=== PATIENT | male | born 1965 | race Caucasian/White ===

== ENCOUNTER 2017-10-24 15:57 | Inpatient (IN) | payer OTHER ==
[~2017-10-24] VITALS: Ht 177.8 cm; Wt 87.1 kg
[2017-10-24] MEDS ORDERED: SOD CHLORIDE 0.9% 1,000 ML IV STA (17:14)
[2017-10-24] MEDS ORDERED: morphine 4 MG/ML VIAL IV STA ×2 (17:14→17:16)
[2017-10-24] MEDS ORDERED: ONDANSETRON 4 MG INJ IV STA (17:16)
[2017-10-24 17:43] LABS: BASOPHIL # 0.1 10^3/ul (0.0-0.1); BASOPHILS % 0.4 % (0.0-2.0); EOSINOPHILS # 0.1 10^3/ul (0.0-0.5); EOSINOPHILS % 0.7 % (0.0-7.0); HEMOGLOBIN 15.2 g/dl (14.0-18.0); LYMPHOCYTES # 1.4 10^3/ul (0.8-2.9); LYMPHOCYTES % 10.4 % (15.0-51.0); MEAN CORPUSCULAR HGB CONC 33.8 g/dl (32.0-37.0); MEAN CORPUSCULAR VOLUME 91.6 fl (82.0-101.0); MEAN PLATELET VOLUME 10.7 fl (7.4-10.4); MONOCYTE # 0.7 10^3/ul (0.3-0.9); MONOCYTES % 5.2 % (0.0-11.0); NEUTROPHIL # 11.1 10^3/ul (1.6-7.5); NEUTROPHILS % 82.8 % (39.0-77.0); PLATELET COUNT 288 10^3/UL (140-415); RED BLOOD COUNT 4.91 10^6/ul (4.70-6.10); RED CELL DISTRIBUTION WIDTH 12.8 % (11.5-14.5); WHITE BLOOD COUNT 13.4 10^3/ul (4.8-10.8)
[2017-10-24 18:14] LABS: ALBUMIN 3.9 g/dl (3.3-4.9); ALBUMIN/GLOBULIN RATIO 1.3; BILIRUBIN,INDIRECT 0.5 mg/dl (0-1.1); BILIRUBIN,TOTAL 0.5 mg/dl (0.2-1.3); CALCIUM 10.4 mg/dl (8.4-10.2); CREATININE 1.26 mg/dl (0.61-1.24); TOTAL PROTEIN 6.9 g/dl (6.1-8.1)
[2017-10-24 18:29] LABS: INR 0.93; PROTIME 12.6 Sec (11.9-14.9)
[2017-10-24 18:30] LABS: PARTIAL THROMBOPLASTIN TIME 31.3 Sec (25.0-35.0)
[2017-10-24] MEDS ORDERED: LABE100T3 PO (18:36)
[2017-10-24] MEDS ORDERED: HYDR12.58 PO (18:37)
--- NOTE | 2017-10-24 18:40 | RADRPT ---
PROCEDURE: Scrotal ultrasound CLINICAL INDICATION: Scrotal pain. Swelling and hernia. TECHNIQUE: Scrotal ultrasound was performed with sagittal and transverse views. Rios scale and co anuj imaging was performed. Images were reviewed on high resolution PACS monitors. COMPARISON: None available FINDINGS: Right Testis: Size: 3.8 x 2.3 x 3.4 cm Echotexture: Normal. Color flow: Normal. Lesions: None. Left Testis: Size: 4.4 x 1.3 x 3.5 cm Echotexture: Normal. Color flow: Normal. Lesions: None. Right Epididymis:Not visualized. Left Epididymis: Size: Normal. Echotexture: Normal. Color flow: Normal. Lesions: None. Additional Findings: Hydrocele: None. Soft Tissues: Massive left inguinal hernia containing bowel loops and mesenteric fat. Varicocele: Large left sided varicocele IMPRESSION: 1. Massive left-sided scrotal hernia. Correlation with CT scan is advised. Surgical consultation is required. RPTAT: PP .Barry Coto MD, MD Date Time Electronically viewed and signed by .Barry Coto MD, on 10/24/2017 18:40 .B/
--- NOTE | 2017-10-24 18:46 | RADRPT ---
PROCEDURE: CT Abdomen and Pelvis without contrast. CLINICAL INDICATION: Severe abdominal pain. TECHNIQUE: A CT scan of the abdomen and pelvis was performed without intravenous contrast. Han l and sagittal reformatted images were generated. DICOM images are available. Images were reviewed o n a high-resolution PACS workstation. CTDIvol: 11.18 mGy. DLP: 738.66 mGy-cm. One or more of the following dose reduction techniques were used: - Automated exposure control. - Adjustment of the mA and/or kV according to patient size. - Use of iterative reconstruction technique. COMPARISON: None. FINDINGS: A minimal atelectatic changes in the lower lobes. Evaluation of the abdominal and pelvic viscera is limited by the lack of oral and intravenous contra st. The liver is unremarkable. The gallbladder is normal in appearance. The common bile duct is not dila jak. The spleen is not enlarged. No pancreatic lesion is identified and there is no pancreatic ducta l dilatation. The adrenal glands are unremarkable. The kidneys are normal in size. There is no perinephric fat stranding. There is mild to moderate lef t hydronephrosis due to kinking of the mid to distal left ureter by an extremely large left inguinal hernia. No urinary stone is identified. There is a 1.8 cm left renal cyst. There is an extremely large left inguinal hernia which is partially imaged. The hernia contains near ly the entire sigmoid colon and cecum, which are not dilated. There is also a distal small bowel loo p within the hernia which is dilated up to 4.9 cm in diameter. The small bowel proximal to the herni a is also dilated up to approximately 4.4 cm in diameter, consistent with a small bowel obstruction. The appendix is not identified. The urinary bladder is unremarkable. The pelvic organs are within normal limits. No lymphadenopathy is identified. There is a small volume of ascites. No pneumoperitoneum is seen. T here are mild to moderate arterial calcifications. No suspicious osseous lesion is idenitified. IMPRESSION: 1. Extremely large left inguinal hernia, partially imaged. The hernia contains nearly the entire si gmoid colon and cecum, which are not dilated. There is also a dilated distal small bowel loop within the hernia sac, and dilatation of the more proximal small bowel, consistent with a small bowel obst ruction. 2. Mild to moderate left hydroureteronephrosis secondary to kinking of the mid to distal left urete r by the hernia. 3. Small volume of ascites. 4. Mild to moderate atherosclerotic arterial calcifications. RPTAT: HTAR .Misbah Art MD, Date Time Electronically viewed and signed by .Misbah Art MD, on 10/24/2017 18:45 .R/
[2017-10-24] MEDS ORDERED: ONDANSETRON 4 MG INJ IV PRN ×2 (19:30→21:30)
[2017-10-24] MEDS ORDERED: ACETAMINOPHEN 325 MG TAB PO PRN (19:30)
--- NOTE | 2017-10-24 19:56 | ERD ---
ER Documentation Chief Complaint Chief Complaint l. inguinal hernia pain HPI 52-year-old male with severe sharp lower abdominal inguinal hernia pain for the last 24 hours. States that he has had a large, irreducible, inguinal hernia and is humongous scrotum for 20 years. Has spoken to surgeons about possible repair before but does not know what happened on follow-up. Denies fever and chills. Does have nausea but has not vomited. Denies specific testicular pain. ROS All systems reviewed and are negative except as per history of present illness. Medications Home Meds Reported Medications Hydrochlorothiazide* (Hydrochlorothiazide*) Unknown Strength Tablet, 1 TAB PO DAILY, #30 TAB 10/24/17 Labetalol Hcl* (Labetalol Hcl*) Unknown Strength Tablet, 1 TAB PO BID, TAB 10/24/17 Allergies Allergies: Coded Allergies: No Known Allergy (Unverified , 10/24/17) PMhx/Soc History of Surgery: Yes (Right knee, low back,) Anesthesia Reaction: No Hx Neurological Disorder: No Hx Respiratory Disorders: No Hx Cardiac Disorders: Yes (HTN) Hx Psychiatric Problems: No Hx Miscellaneous Medical Probl: No Hx Alcohol Use: No Hx Substance Use: No Hx Tobacco Use: Yes Smoking Status: Current every day smoker Physical Exam Vitals Vital Signs Date Time Temp Pulse Resp B/P Pulse Ox O2 Delivery O2 Flow Rate FiO2 10/24/17 18:20 97.9 73 20 140/102 98 Room Air 10/24/17 15:59 97.9 87 20 175/108 98 Physical Exam Const: [] Moderate distress Head: Atraumatic Eyes: Normal Conjunctiva ENT: Normal External Ears, Nose and Mouth. Neck: Full range of motion..~ No meningismus. Resp: Clear to auscultation bilaterally Cardio: Regular rate and rhythm, no murmurs Abd: Soft, mild lower abdominal tenderness, mild tenderness to palpation of left scrotum. No guarding. Scrotum is enormous but does not have any erythema or calor. No tenderness palpation of penis. Normal bowel sounds Skin: No petechiae or rashes Back: No midline or flank tenderness Ext: No cyanosis, or edema Neur: Awake and alert oriented 3, no focal deficits Psych: Normal Mood and Affect Result Diagram: 10/24/17 1725 10/24/17 1725 Results 24 hrs Laboratory Tests Test 10/24/17 17:25 White Blood Count 13.410^3/ul Red Blood Count 4.9110^6/ul Hemoglobin 15.2g/dl Hematocrit 45.0% Mean Corpuscular Volume 91.6fl Mean Corpuscular Hemoglobin 31.0pg Mean Corpuscular Hemoglobin Concent 33.8g/dl Red Cell Distribution Width 12.8% Platelet Count 88145^3/UL Mean Platelet Volume 10.7fl Neutrophils % 82.8% Lymphocytes % 10.4% Monocytes % 5.2% Eosinophils % 0.7% Basophils % 0.4% Nucleated Red Blood Cells % 0.0/100WBC Neutrophils # 11.110^3/ul Lymphocytes # 1.410^3/ul Monocytes # 0.710^3/ul Eosinophils # 0.110^3/ul Basophils # 0.110^3/ul Nucleated Red Blood Cells # 0.010^3/ul Prothrombin Time 12.6Sec Prothrombin Time Ratio 1.0 INR International Normalized Ratio 0.93 Activated Partial Thromboplast Time 31.3Sec Sodium Level 139mmol/L Potassium Level 4.0mmol/L Chloride Level 99mmol/L Carbon Dioxide Level 31mmol/L Anion Gap 13 Blood Urea Nitrogen 16mg/dl Creatinine 1.26mg/dl Glucose Level 166mg/dl Lactic Acid Level 1.5mmol/L Calcium Level 10.4mg/dl Total Bilirubin 0.5mg/dl Direct Bilirubin 0.00mg/dl Indirect Bilirubin 0.5mg/dl Aspartate Amino Transf (AST/SGOT) 25IU/L Alanine Aminotransferase (ALT/SGPT) 39IU/L Alkaline Phosphatase 110IU/L Total Protein 6.9g/dl Albumin 3.9g/dl Globulin 3.00g/dl Albumin/Globulin Ratio 1.30 Lipase 50U/L Current Medications Medications (Trade) Dose Ordered Sig/Terry Route PRN Reason Start Time Stop Time Status Last Admin Dose Admin Sodium Chloride (NS) 1,000 ml @ 1,000 mls/hr Q1H STAT IV 10/24/17 17:14 10/24/17 18:13 DC 10/24/17 17:14 Morphine Sulfate (morphine) 4 mg ONCE STAT IV 10/24/17 17:14 10/24/17 17:16 DC 10/24/17 18:20 Ondansetron HCl (Zofran Inj) 4 mg ONCE STAT IV 10/24/17 17:16 10/24/17 17:17 DC 10/24/17 18:20 Morphine Sulfate (morphine) 4 mg ONCE STAT IV 10/24/17 17:16 10/24/17 17:17 DC 10/24/17 18:20 Ondansetron HCl (Zofran Inj) 4 mg BRIDGE ORDER PRN IV NAUSEA AND/OR VOMITING 10/24/17 19:30 10/25/17 19:29 Acetaminophen (Tylenol Tab) 650 mg ER BRIDGE PRN PO MILD PAIN/FEVER 10/24/17 19:30 10/25/17 19:29 Procedures/MDM Small bowel obstruction of chronic inguinal hernia into enlarged scrotum. Patient does have elevated white blood cell count. He was hydrated with 2 L of normal saline feeding for the pain which almost completely resolved his pain. Is also given Zofran which resolved his nausea. Spoke with Dr. Guo who will see patient on consult. Is being admitted to on day. CT abdomen pelvis with contrast: Small bowel obstruction proximal to markedly enlarged scrotum containing the entire sigmoid colon, no free air, no bony abnormalities. Scrotal ultrasound: Markedly enlarged scrotum with inability to visualize testicles. Departure Diagnosis: Primary Impression: Small bowel obstruction Additional Impressions: Scrotal hernia Renal insufficiency Condition: Serious DALE PRESTON DO Oct 24, 2017 19:56
[2017-10-24 20:18] VITALS: TEMP 97.9
[2017-10-24 21:25] VITALS: BP 150/97; RESP 20; Ht 177.8 cm; Wt 87.1 kg
[2017-10-24] MEDS ORDERED: DEXTROSE 5%-0.45% NACL 1,000 ML IV SCH (21:30)
[2017-10-24] MEDS ORDERED: hydrALAzine 20 MG INJ IV PRN (21:30)
[2017-10-24] MEDS: morphine 4 MG/ML VIAL IV PRN (22:11)
--- NOTE | 2017-10-24 23:22 | CONS ---
Date/Time of Note Date/Time of Note DATE: 10/24/17 TIME: 23:22 Assessment/Plan Assessment/Plan Chief Complaint/Hosp Course 1. Very large chronic (20 years) left inguinal hernia that has become more significantly painful. -Elevate -Patient will need surgical intervention however high risk for perioperative morbidity and mortality and developing seroma fluid collection. 2. SBO, possible partial secondary to above -npo -NG tube -Eventual surgery if not improving 3. Leukocytosis may be secondary to above versus other -Panculture 4. Anemia -Monitor 5. Smoker -Highly encouraged cessation 6. Renal insufficiency -Judicious fluid management -Avoid nephrotoxic agents 7. Hypertension -Diet and medication optimization encouraged Thank you very much for consulting me this patient's care, Problems: Consultation Date/Type/Reason Admit Date/Time Oct 24, 2017 at 19:31 Date of Consultation: Oct 24, 2017 Type of Consultation: General surgical Reason for Consultation Left groin pain Huge left scrotal hernia Referring Provider: DALE PRESTON DO Hx of Present Illness Sunday Torrez is a 52yo male with severe sharp lower abdominal inguinal hernia pain for the last 24 hours. States that he has had a large, irreducible, inguinal hernia and is humongous scrotum for 20 years. Has spoken to surgeons about possible repair in the past. Usually has a bowel movement every other day and he gone yesterday. He is passing flatus. Denies fever and chills. Does have nausea but has not vomited. Denies visual neurologic changes. CT scan is reported. He has mild leukocytosis. Surgical consult is obtained further evaluation and treatment. 12 point review of systems negative unless addressed in HPI Past Medical History Right knee Low back pain HTN Smoker Anemia Leukocytosis Renal insufficiency Family History Significant Family History: no pertinent family hx Social History Alcohol Use: occasionally Smoking Status: Current every day smoker Drug Use: marijuana Exam/Review of Systems Vital Signs Vitals Vital Signs Date Time Temp Pulse Resp B/P Pulse Ox O2 Delivery O2 Flow Rate FiO2 10/24/17 21:25 98.2 86 20 150/97 95 10/24/17 20:18 Room Air Exam Constitutional: alert, oriented, No distress Psych: nl mood/affect, No anxiety Head: atraumatic, normocephalic Eyes: PERRL, nl conjunctiva, No icteric ENMT: mucosa pink and moist, nl external ears & nose, nl lips & teeth Neck: jvd, non-tender, supple Respiratory: normal air movement, No congested cough, No labored breathing Cardiovascular: edema, No regular rate and rhythm Gastrointestinal: distended, other (Blanching erythema very minimal), soft, tender, No rebound or guarding Genitourinary - Male: nl penis Musculoskeletal: No joint tenderness Extremities: normal pulses, No calf tenderness Neurological: nl speech, nl strength, No COG[employer]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, No confused, No nl mental status Skin: nl turgor, No diaphoresis, No rash or lesions Lymph: nl lymph nodes Results Result Diagram: 10/24/17 1725 10/24/17 1725 Results 24 hrs Laboratory Tests Test 10/24/17 17:25 White Blood Count 13.4 H Red Blood Count 4.91 Hemoglobin 15.2 Hematocrit 45.0 Mean Corpuscular Volume 91.6 Mean Corpuscular Hemoglobin 31.0 Mean Corpuscular Hemoglobin Concent 33.8 Red Cell Distribution Width 12.8 Platelet Count 288 Mean Platelet Volume 10.7 H Neutrophils % 82.8 H Lymphocytes % 10.4 L Monocytes % 5.2 Eosinophils % 0.7 Basophils % 0.4 Nucleated Red Blood Cells % 0.0 Neutrophils # 11.1 H Lymphocytes # 1.4 Monocytes # 0.7 Eosinophils # 0.1 Basophils # 0.1 Nucleated Red Blood Cells # 0.0 Prothrombin Time 12.6 Prothrombin Time Ratio 1.0 INR International Normalized Ratio 0.93 Activated Partial Thromboplast Time 31.3 Sodium Level 139 Potassium Level 4.0 Chloride Level 99 Carbon Dioxide Level 31 Anion Gap 13 Blood Urea Nitrogen 16 Creatinine 1.26 H Glucose Level 166 Lactic Acid Level 1.5 Calcium Level 10.4 H Total Bilirubin 0.5 Direct Bilirubin 0.00 Indirect Bilirubin 0.5 Aspartate Amino Transf (AST/SGOT) 25 Alanine Aminotransferase (ALT/SGPT) 39 Alkaline Phosphatase 110 Total Protein 6.9 Albumin 3.9 Globulin 3.00 Albumin/Globulin Ratio 1.30 Lipase 50 Medications Medications Current Medications Dextrose/Sodium Chloride (D5-1/2ns) 1,000 ml @ 100 mls/hr Q10H IV Last administered on 10/24/17t 22:11; Admin Dose 100 MLS/HR; Start 10/24/17 at 21:30 Morphine Sulfate (morphine) 3 mg Q4H PRN IV pain Last administered on t 22:11; Admin Dose 3 MG; Start 10/24/17 at 21:30 Ondansetron HCl (Zofran Inj) 4 mg Q6H PRN IV NAUSEA AND/OR VOMITING; Start 10/24/17 at 21:30 Hydralazine HCl (Apresoline) 10 mg Q4H PRN IV SBP above 160; Start 10/24/17 at 21:30 CONCETTA THOMAS MD Oct 24, 2017 23:22
[2017-10-25] MEDS: SOD CHLORIDE 0.9% 1,000 ML IV SCH ×3 (01:25→12:31)
[2017-10-25 02:27] VITALS: BP 157/104; RESP 20
[2017-10-25 03:13] VITALS: BP 146/88
[2017-10-25] MEDS: morphine 4 MG/ML VIAL IV PRN (06:35)
[2017-10-25 08:26] VITALS: BP 131/83; RESP 18
--- NOTE | 2017-10-25 09:24 | PN ---
Date/Time of Note Date/Time of Note DATE: 10/25/17 TIME: 09:24 Assessment/Plan VTE Prophylaxis VTE Prophylaxis Intervention: SCD's Assessment/Plan Chief Complaint/Hosp Course 52-year-old male with chronic scrotal/inguinal hernia with hugely swollen scrotum for around 20 years, now presenting to the emergency room with sudden onset of excruciating scrotal pain. 1.Massive left-sided scrotal hernia/inguinal hernia occupying entire sigmoid colon and cecum causing partial small bowel obstruction and left hydroureteronephrosis. Patient now symptomatic. Status: Acute on chronic. -Surgery following. I have also consulted urologist , and per recommendation, this hernia should be repaired by surgery team. -Keep patient n.p.o. After discussion with surgery team, we are going to place an order for small bowel follow-through and NG tube insertion. -Continue pain control. -We will defer to urology /surgery for further recommendation on surgical approach if indicated. 2. CATRINA, likely post renal with left hydroureteronephrosis versus CKD. -We will treat this with IV fluids. We will also obtain a renal ultrasound. We will also obtain some urine studies. -Monitor renal function closely and will consider nephrology if indicated. Follow-up with the urology recommendations. 3. Essential hypertension. Patient also noncompliant with antihypertensives as outpatient. -We will start patient on low-dose metoprolol and will monitor. 4. Leukocytosis, likely reactive versus possible infectious source. -Obtain a urine analysis and culture. 5. Possible homelessness. Patient reported that he lives in his friend's garage. -wine cellar worker consult. 6. Substance abuse/nicotine abuse. Cessation advised. Prophylaxis: SCDs/Pepcid. Plan: Follow-up with surgery and urology recommendations. Patient was seen in collaboration with . Problems: Subjective 24 Hr Interval Summary Free Text/Dictation Patient lying in bed. He is complaining of severe scrotal pain and is relieved with morphine. Denies dysuria, hematuria, urinary frequency or urgency. Exam/Review of Systems Vital Signs Vitals Vital Signs Date Time Temp Pulse Resp B/P Pulse Ox O2 Delivery O2 Flow Rate FiO2 10/25/17 08:26 98.2 72 18 131/83 97 10/24/17 20:18 Room Air Intake and Output 10/24/17 10/24/1710/25/17 15:00 23:00 07:00 Intake Total 680 ml Balance 680 ml Exam General: Well developed,adequately built, somewhat disheveled male not in any acute distress . HEENT: Normocephalic, Atraumatic, No laceration or hematoma; Eyes: PEERL, Conjunctiva clear, Anicteric sclera Neck: Supple without any lymphadenopathy, nontender, no JVD, no carotid bruits, trachea midline, no thyromegaly Cardiac: S1, S2 auscultated, regular rhythm and rate, no mumurs or gallop Pulmonary: Normal respiratory effort. Chest clear to auscultation bilaterally, no adventitious breath sounds GI: Abdomen normal to inspection. Soft, non tender, non- distended, no masses, no rebound tenderness or guarding. Bowel sounds active on all four quadrants Genitourinary: Humongous/Hugely swollen scrotum with pain. Extremities: No cyanosis, clubbing, or edema. Pulses [2+] bilaterally. Full ROM on all four extremities. No focal weakness appreciated. Neurologic: Alert to person, place, time, and situation. Affect appropriate, intact sensation. Skin: Clean,dry, and intact. No ecchymosis, no rashes, or lesions Results Result Diagram: 10/24/17 1725 10/24/17 1725 Results 24 hrs Laboratory Tests Test 10/24/17 17:25 White Blood Count 13.4 H Red Blood Count 4.91 Hemoglobin 15.2 Hematocrit 45.0 Mean Corpuscular Volume 91.6 Mean Corpuscular Hemoglobin 31.0 Mean Corpuscular Hemoglobin Concent 33.8 Red Cell Distribution Width 12.8 Platelet Count 288 Mean Platelet Volume 10.7 H Neutrophils % 82.8 H Lymphocytes % 10.4 L Monocytes % 5.2 Eosinophils % 0.7 Basophils % 0.4 Nucleated Red Blood Cells % 0.0 Neutrophils # 11.1 H Lymphocytes # 1.4 Monocytes # 0.7 Eosinophils # 0.1 Basophils # 0.1 Nucleated Red Blood Cells # 0.0 Prothrombin Time 12.6 Prothrombin Time Ratio 1.0 INR International Normalized Ratio 0.93 Activated Partial Thromboplast Time 31.3 Sodium Level 139 Potassium Level 4.0 Chloride Level 99 Carbon Dioxide Level 31 Anion Gap 13 Blood Urea Nitrogen 16 Creatinine 1.26 H Glucose Level 166 Lactic Acid Level 1.5 Calcium Level 10.4 H Total Bilirubin 0.5 Direct Bilirubin 0.00 Indirect Bilirubin 0.5 Aspartate Amino Transf (AST/SGOT) 25 Alanine Aminotransferase (ALT/SGPT) 39 Alkaline Phosphatase 110 Total Protein 6.9 Albumin 3.9 Globulin 3.00 Albumin/Globulin Ratio 1.30 Lipase 50 Medications Medications Current Medications Dextrose/Sodium Chloride (D5-1/2ns) 1,000 ml @ 100 mls/hr Q10H IV Last administered on 10/24/17 22:11; Admin Dose 100 MLS/HR; Start 10/24/17 at 21:30 Morphine Sulfate (morphine) 3 mg Q4H PRN IV pain Last administered on 06:35; Admin Dose 3 MG; Start 10/24/17 at 21:30 Ondansetron HCl (Zofran Inj) 4 mg Q6H PRN IV NAUSEA AND/OR VOMITING Last administered on 10/24/17 23:38; Admin Dose 4 MG; Start 10/24/17 at 21:30 Hydralazine HCl (Apresoline) 10 mg Q4H PRN IV SBP above 160 Last administered on 10/25/17 01:42; Admin Dose 10 MG; Start 10/24/17 at 21:30 RICHARD HICKMAN NP Oct 25, 2017 09:24
[2017-10-25] MEDS: METOPROLOL 25 MG TAB PO SCH (09:30)
[2017-10-25] MEDS ORDERED: LEVOFLOXACIN 500MG/D5W (PMX) 100 ML IVPB SCH (11:00)
--- NOTE | 2017-10-25 11:16 | RADRPT ---
PROCEDURE: Retroperitoneal US. CLINICAL INDICATION: Renal insufficiency TECHNIQUE: Multiple sonographic images of the kidneys and retroperitoneum were obtained. The imag es were reviewed on a PACS workstation. COMPARISON: 10/24/17 FINDINGS: The kidneys are normal in size, contour, cortical thickness and cortical echogenicity. The right kidney measures 9.9 cm. The left kidney measures 10.9 cm. No kidney stones are visualized. There is mild to moderate hydronephrosis. The urinary bladder is normal. There is a small amount of ascites. RPTAT: AA IMPRESSION: Mild to moderate left-sided hydronephrosis, not significantly changed. .Sung Kumar MD, MD Date Time Electronically viewed and signed by .Sung Kumar MD, on 10/25/2017 11:16 .S/
[2017-10-25 11:21] LABS: CHOL/HDL RATIO 3.6 RATIO
[2017-10-25 12:48] LABS: THYROID STIMULATING HORMONE 0.498 MIU/L (0.465-4.680)
--- NOTE | 2017-10-25 13:08 | PN ---
Date/Time of Note Date/Time of Note DATE: 10/25/17 TIME: 12:50 Assessment/Plan Assessment/Plan Chief Complaint/Hosp Course 1. Very large chronic (20 years) left inguinal hernia that has become more significantly painful. -Elevate -sbft -Patient will need surgical intervention however high risk for perioperative morbidity and mortality and developing seroma fluid collection. 2. SBO, possible partial secondary to above -npo -NG tube-patient refusing -Eventual surgery if not improving 3. Leukocytosis may be secondary to above versus other: afebrile -Panculture 4. Anemia -Monitor 5. Smoker -Highly encouraged cessation 6. Renal insufficiency -Judicious fluid management -Avoid nephrotoxic agents 7. Hypertension -Diet and medication optimization encouraged Thank you. Patient seen and examined in collaboration with Dr. Trell Guo. Problems: Subjective 24 Hr Interval Summary Feels ok. Continues to have perineal discomfort but no acute pain. Continues to have urinary function, but no bowel function. No fevers, chills, sob, congested cough, cp, palpitations, doll, dizziness, n/v/d/dysuria. Exam/Review of Systems Vital Signs Vitals Vital Signs Date Time Temp Pulse Resp B/P Pulse Ox O2 Delivery O2 Flow Rate FiO2 10/25/17 08:26 98.2 72 18 131/83 97 10/24/17 20:18 Room Air Intake and Output 10/24/17 10/24/17 10/25/17 15:00 23:00 07:00 Intake Total 680 ml Balance 680 ml Exam Free Text/Dictation Constitutional: alert, oriented, No distress Psych: nl mood/affect, No anxiety Head: atraumatic, normocephalic Eyes: PERRL, nl conjunctiva, No icteric ENMT: mucosa pink and moist, nl external ears & nose, nl lips & teeth Neck: jvd, non-tender, supple Respiratory: normal air movement, No congested cough, No labored breathing Cardiovascular: edema, No regular rate and rhythm Gastrointestinal: distended, other (Blanching erythema very minimal), soft, tender, No rebound or guarding Genitourinary - Male: large left inguinal hernia, no discoloration, min tender Musculoskeletal: No joint tenderness Extremities: normal pulses, No calf tenderness Neurological: nl speech, nl strength, No SHOE TURNER II-XII intact, No confused, No nl mental status Skin: nl turgor, No diaphoresis, No rash or lesions Lymph: nl lymph nodes Results Result Diagram: 10/24/17 1725 10/24/17 1725 AMY GAMBOA NP Oct 25, 2017 13:00
[2017-10-25 14:20] VITALS: BP 154/101; RESP 18
--- NOTE | 2017-10-25 15:00 | CONS ---
Date/Time of Note Date/Time of Note DATE: 10/25/17 TIME: 14:56 Assessment/Plan Assessment/Plan Additional Assessment/Plan 52-year-old male with 1.Massive left-sided scrotal hernia/inguinal hernia 2 Partial small bowel obstruction and left hydroureteronephrosis. 3.CATRINA vs CKD 2nd to above. 4.Essential hypertension. 5.Leukocytosis 6.Hypercalcemia Planned for OR today, Hernia Repair. Agree with IVFs cont current rate Repeat chemstry in am Cont current Rx and plan Will cont to follow along with you. Will cont to monitor BP, Consider change to labetalol at this time If necessary can start lasix instead of HCTZ due to hypercalcemia Thank you fo the opportunity to participate in the care of Mr Poole. Consultation Date/Type/Reason Admit Date/Time Oct 24, 2017 at 19:31 Date of Consultation: Oct 25, 2017 Type of Consultation: Renal Reason for Consultation Catrina, CKD Referring Provider: RICHARD HICKMAN NP Hx of Present Illness 52 yo Male with hx of Chronic HTN, large scrotal swelling chronically for many years >20 years, presenting to [facility] with complaints of lower abdominal and scrotal pain. Found to have elevated Cr on bloodwork. Nephrology consulted for CATRINA vs CKD. Pt is able to make urine. No dysuria or hematuria. Past Medical History Medical History: hypertension Family History Significant Family History: no pertinent family hx Social History Alcohol Use: none Smoking Status: Current every day smoker Drug Use: marijuana Exam/Review of Systems Vital Signs Vitals Vital Signs Date Time Temp Pulse Resp B/P Pulse Ox O2 Delivery O2 Flow Rate FiO2 10/25/17 14:20 97.8 82 18 154/101 96 10/24/17 20:18 Room Air Intake and Output 10/24/17 10/24/17 10/25/17 15:00 23:00 07:00 Intake Total 680 ml Balance 680 ml Exam disheveled in appearance Constitutional: alert, oriented, No distress Head: atraumatic, normocephalic Eyes: EOMI ENMT: mucosa pink and moist Neck: No jvd Respiratory: clear to auscultation, No crackles/rales, No diminished breath sounds, No labored breathing Cardiovascular: edema (trace), regular rate and rhythm Gastrointestinal: rebound or guarding, soft, tender, No ascites, No distended Genitourinary - Male: other (Large scortal herniation), No nl scrotum Musculoskeletal: nl extremities to inspection Extremities: edema (trace), normal pulses Neurological: SLAB OFF MILL TENDER II-XII intact, nl mental status, nl speech, nl strength, No confused, No lethargic Skin: No diaphoresis Results Result Diagram: 10/24/17 1725 10/24/17 1725 Results 24 hrs Laboratory Tests Test 10/24/17 17:25 10/25/17 10:32 White Blood Count 13.4 H Red Blood Count 4.91 Hemoglobin 15.2 Hematocrit 45.0 Mean Corpuscular Volume 91.6 Mean Corpuscular Hemoglobin 31.0 Mean Corpuscular Hemoglobin Concent 33.8 Red Cell Distribution Width 12.8 Platelet Count 288 Mean Platelet Volume 10.7 H Neutrophils % 82.8 H Lymphocytes % 10.4 L Monocytes % 5.2 Eosinophils % 0.7 Basophils % 0.4 Nucleated Red Blood Cells % 0.0 Neutrophils # 11.1 H Lymphocytes # 1.4 Monocytes # 0.7 Eosinophils # 0.1 Basophils # 0.1 Nucleated Red Blood Cells # 0.0 Prothrombin Time 12.6 Prothrombin Time Ratio 1.0 INR International Normalized Ratio 0.93 Activated Partial Thromboplast Time 31.3 Sodium Level 139 Potassium Level 4.0 Chloride Level 99 Carbon Dioxide Level 31 Anion Gap 13 Blood Urea Nitrogen 16 Creatinine 1.26 H Glucose Level 166 Lactic Acid Level 1.5 Calcium Level 10.4 H Total Bilirubin 0.5 Direct Bilirubin 0.00 Indirect Bilirubin 0.5 Aspartate Amino Transf (AST/SGOT) 25 Alanine Aminotransferase (ALT/SGPT) 39 Alkaline Phosphatase 110 Total Protein 6.9 Albumin 3.9 Globulin 3.00 Albumin/Globulin Ratio 1.30 Lipase 50 Hemoglobin A1c 5.6 Triglycerides Level 106 Cholesterol Level 122 LDL Cholesterol, Calculated 68 HDL Cholesterol 33 Cholesterol/HDL Ratio 3.6 Thyroid Stimulating Hormone (TSH) 0.498 Imaging Free Text/Dictation IMPRESSION: 1. Extremely large left inguinal hernia, partially imaged. The hernia contains nearly the entire sigmoid colon and cecum, which are not dilated. There is also a dilated distal small bowel loop within the hernia sac, and dilatation of the more proximal small bowel, consistent with a small bowel obstruction. 2. Mild to moderate left hydroureteronephrosis secondary to kinking of the mid to distal left ureter by the hernia. 3. Small volume of ascites. 4. Mild to moderate atherosclerotic arterial calcifications. Medications Medications Current Medications Morphine Sulfate (morphine) 3 mg Q4H PRN IV pain Last administered on 06:35; Admin Dose 3 MG; Start 10/24/17 at 21:30 Ondansetron HCl (Zofran Inj) 4 mg Q6H PRN IV NAUSEA AND/OR VOMITING Last administered on 10/24/17 23:38; Admin Dose 4 MG; Start 10/24/17 at 21:30 Hydralazine HCl 10 mg 10 mg Q4H PRN IV SBP above 160 Last administered on 01:42; Admin Dose 10 MG; Start 10/24/17 at 21:30 Sodium Chloride (NS) 1,000 ml @ 75 mls/hr [id number] IV Last administered on 10/25 12:31; Admin Dose 75 MLS/HR; Start 10/25/17 at 09:30 Metoprolol Tartrate 25 mg 25 mg DAILY PO ; Start 10/25/17 at 09:30 Levofloxacin/ Dextrose (Levaquin 500mg/ D5W 100 ml (Pmx)) 100 ml @ 100 mls/hr Q24H IVPB Last administered on 10/25/17 12:31; Admin Dose 100 MLS/HR; Start 10/25/17 at 11:00 Procedures Procedures PROCEDURE: Retroperitoneal US. CLINICAL INDICATION: Renal insufficiency TECHNIQUE: Multiple sonographic images of the kidneys and retroperitoneum were obtained. The images were reviewed on a PACS workstation. COMPARISON: 10/24/17 FINDINGS: The kidneys are normal in size, contour, cortical thickness and cortical echogenicity. The right kidney measures 9.9 cm. The left kidney measures 10.9 cm. No kidney stones are visualized. There is mild to moderate hydronephrosis. The urinary bladder is normal. There is a small amount of ascites. RPTAT: AA IMPRESSION: Mild to moderate left-sided hydronephrosis, not significantly changed. .Sung Kumar MD, MD Date Time Electronically viewed and signed by .Sung Kumar MDMD on 10/25/2017 11: 16 IMPRESSION: 1. Massive left-sided scrotal hernia. Correlation with CT scan is advised. Surgical consultation is required. DAKOTA HUTCHINSON MD Oct 25, 2017 15:00
--- NOTE | 2017-10-25 15:28 | RADRPT ---
AMENDMENT: 10/25/2017 3:29:13 PM Sung Kumar M.d There are small bilateral scattered calcified granulomas. PROCEDURE: XR Chest. CLINICAL INDICATION: Preoperative, hernia TECHNIQUE: Single frontal view of the chest was obtained COMPARISON: None FINDINGS: The heart and mediastinum are within normal limits. The lungs are clear. There is no pleural effusion or pneumothorax. RPTAT: AA IMPRESSION: No acute disease. .Sung Kumar MD, MD Date Time Electronically viewed and signed by .Sung Kumar MD, on 10/25/2017 15:29 .S/
--- NOTE | 2017-10-25 15:57 | RADRPT ---
Echocardiogram Report Patient Name: ANDREW ZAYAS Gender: Male Date: 1965 Study Date: 25-Oct-2017 Associate Genetics Professor: Clarke Chris [facility] Location: 621-A Ref. Physician: RICHARD HICKMAN Quality: Adequate Procedures: Transthoracic echocardiogram with complete 2D, M-Mode, and doppler examination. Indications: Pre-op. 2D/M Mode Doppler Measurement Value Normal Ranges Measurement Value Normal Ranges LVIDd 2D 4.7 3.5 - 5.6 cm AV Peak Alexis 1.1 m/sec LVIDs 2D 3.0 2.1 - 4.1 cm AV Peak PG 5.0 mmHg FS 2D 36.3 % LVOT Peak Alexis 1.0 m/sec LVPWd 2D 1.3 0.6 - 1.1 cm LVOT Peak PG 4.0 mmHg IVSd 2D 1.3 0.6 - 1.1 cm MV E Peak Alexis 0.6 m/sec IVS/LVPW 2D 1.0 MV A Peak Alexis 0.9 m/sec AoR Diam 2D 3.4 2.0 - 3.7 cm MV E/A 0.7 LA/Ao 2D 1 0 - 1 MV Decel Time 180 msec EDV 2D 101.0 cm3 MV E/A 0.7 ESV 2D 26.2 cm3 TR Peak Alexis 2.6 m/sec LA Dimen 2D 3.4 2.3 - 4.0 cm TR Peak PG 26.0 mmHg RVSP 29.0 mmHg Findings Left Ventricle: Normal left ventricular systolic function. Normal left ventricular cavity size. Mild concentric left ventricular hypertrophy. Ejection fraction is visually estimated at 5560 %. Tissue Doppler/Mitral Doppler indices are consistent with impaired relaxation (Stage I diastolic dysfunction). Right Ventricle: Normal right ventricular size. Normal right ventricular systolic function. Left Atrium: The left atrium is normal in size. Right Atrium: The right atrium is normal in size. Mitral Valve: Mitral valve leaflets appear mildly thickened. Mild mitral annular calcification. Trace mitral regurgitation. Aortic Valve: Normal appearance of the aortic valve. No significant aortic stenosis or insufficiency. Tricuspid Valve: Normal appearance of the tricuspid valve. Estimated peak PA systolic pressure 29 mmHg. There is mild tricuspid regurgitation. Pulmonic Valve: Pulmonic valve not well visualized. There is trace pulmonic regurgitation. Pericardium: Normal pericardium with no significant pericardial effusion. Aorta: Normal aortic root. IVC: Normal size and normal respiratory collapse consistent with normal right atrial pressure. Conclusions 1.The left ventricle is normal in size and systolic function. 2.Estimated left ventricular ejection fraction of 55-60%. 3.Grade 1 diastolic dysfunction. Electronically Signed By: Irineo Pierre 25-Oct-2017 15:56:26 -0800 Patient Name: ANDREW ZAYAS Study Date: 25-Oct-2017 [id number]
[2017-10-25 16:38] LABS: ADD UMIC NO; UR ASCORBIC ACID NEGATIVE (NEGATIVE); UR BILIRUBIN (Dip) NEGATIVE (NEGATIVE); UR BLOOD (Dip) NEGATIVE (NEGATIVE); UR CLARITY CLEAR (CLEAR); UR COLOR YELLOW (YELLOW); UR GLUCOSE (Dip) NEGATIVE (NEGATIVE); UR KETONES (Dip) NEGATIVE (NEGATIVE); UR LEUKOCYTE ESTERASE (Dip) NEGATIVE Leu/ul (NEGATIVE); UR NITRITE (Dip) NEGATIVE (NEGATIVE); UR TOTAL PROTEIN (Dip) NEGATIVE (NEGATIVE); UR UROBILINOGEN (Dip) NEGATIVE (NEGATIVE)
[2017-10-25] MEDS ORDERED: LIDOCAINE 1% (MPF) 30 ML INJ ONE (18:30)
[2017-10-25] MEDS ORDERED: BUPIVACAINE 0.5%/EPI (SDV) 30 ML INJ ONE (18:30)
[2017-10-25] MEDS ORDERED: POLYMYXIN/BACITRACIN 1L IRRIG ONE (18:30)
[2017-10-25] MEDS ORDERED: NEOSTIGMINE 3 MG/3 ML SYRINGE ONE ×2 (20:10→20:57)
[2017-10-25] MEDS ORDERED: PROPOFOL 20 ML ONE (20:10)
[2017-10-25] MEDS ORDERED: MEPERIDINE 100 MG INJ ONE (20:10)
[2017-10-25] MEDS ORDERED: GLYCOPYRROLATE 0.4 MG INJ ONE ×3 (20:10→20:57)
[2017-10-25] MEDS ORDERED: ROCURONIUM 50 MG INJ ONE ×3 (20:10→23:25)
[2017-10-25] MEDS ORDERED: LIDOCAINE 2% (SDV) 5 ML INJ ONE (20:10)
[2017-10-25] MEDS ORDERED: SUCCINYLCHOLINE CHLORIDE 100 MG/5 ML SYG IV ONE (20:10)
[2017-10-25] MEDS ORDERED: METOCLOPRAMIDE 10 MG INJ IV PRN (20:30)
[2017-10-25] MEDS ORDERED: LABETALOL HCL 20MG INJ IV PRN (20:30)
[2017-10-25] MEDS ORDERED: MEPERIDINE 25 MG INJ IV PRN (20:30)
[2017-10-25] MEDS ORDERED: HYDROmorphONE (0.2 MG/ML) 10ML SYG IV PRN ×3 (20:30)
[2017-10-25] MEDS ORDERED: ONDANSETRON 4 MG INJ IV PRN (20:30)
[2017-10-25] MEDS ORDERED: OXYCODONE/ACETAMINOPHEN (5/325) TAB PO PRN ×2 (20:30)
[2017-10-25] MEDS ORDERED: DIPHENHYDRAMINE 50 MG INJ IV PRN (20:30)
[2017-10-25] MEDS ORDERED: FENTAnyl 50 MCG/ML VIAL IV PRN ×3 (20:30)
[2017-10-25] MEDS ORDERED: hydrALAzine 20 MG INJ IV PRN (20:30)
[2017-10-25] MEDS ORDERED: MIDAZOLAM 1 MG/ML 2 ML INJ IV PRN (20:30)
[2017-10-25] MEDS ORDERED: EPHEDrine SULFATE 50 MG/5 ML SYG IV PRN (20:30)
[2017-10-25] MEDS ORDERED: CEFAZOLIN 1 GM INJ ONE (20:56)
[2017-10-25] MEDS ORDERED: POLYMYXIN B 500000 UNIT INJ ONE (22:33)
--- NOTE | 2017-10-25 23:13 | HP ---
Date/Time of Note Date/Time of Note DATE: 10/25/17 TIME: 23:13 Assessment/Plan Lines/Catheters IV Catheter Type (from Nrsg): Peripheral IV Assessment/Plan Assessment/Plan ASSESSMENT Patient is a 52-year-old male with a history of hypertension and AAA who presented to the ER and found to have extremely large left inguinal hernia with massive left-sided scrotal hernia PLAN Keep n.p.o. with IV fluid Pain management Follow-up surgery recommendations Patient presented with a creatinine of 1.26, if worsens then will place a nephrology consult and obtain renal ultrasound HPI/ROS Admit Date/Time Admit Date/Time Oct 24, 2017 at 19:31 Hx of Present Illness This is a 52-year-old male with a history of hypertension, AAA who presented with abdominal pain. CT abdomen pelvis shows Extremely large left inguinal hernia, partially imaged. The hernia contains nearly the entire sigmoid colon and cecum, which are not dilated. There is also a dilated distal small bowel loop within the hernia sac, and dilatation of the more proximal small bowel, consistent with a small bowel obstruction and mild to moderate left hydroureteronephrosis secondary to kinking of the mid to distal left ureter by the hernia.. Testicular ultrasound shows massive left-sided scrotal hernia ROS Psychological: nl mood/affect, No anxiety PMH/Family/Social Past Medical History Medical History: hypertension Social History Alcohol Use: none Smoking Status: Current every day smoker Drug Use: marijuana Exam/Review of Systems Vital Signs Vitals Vital Signs Date Time Temp Pulse Resp B/P Pulse Ox O2 Delivery O2 Flow Rate FiO2 10/25/17 14:20 97.8 82 18 154/101 96 10/24/17 20:18 Room Air Intake and Output 10/24/17 10/24/17 10/25/17 15:00 23:00 07:00 Intake Total 680 ml Balance 680 ml Labs Result Diagram: 10/24/17 1725 10/24/17 1725 Medications Medications Current Medications Morphine Sulfate (morphine) 3 mg Q4H PRN IV pain Last administered on 06:35; Admin Dose 3 MG; Start 10/24/17 at 21:30 Ondansetron HCl (Zofran Inj) 4 mg Q6H PRN IV NAUSEA AND/OR VOMITING Last administered on 10/24/17 23:38; Admin Dose 4 MG; Start 10/24/17 at 21:30 Hydralazine HCl 10 mg 10 mg Q4H PRN IV SBP above 160 Last administered on 01:42; Admin Dose 10 MG; Start 10/24/17 at 21:30 Sodium Chloride (NS) 1,000 ml @ 75 mls/hr [id number] IV Last administered on 10/25 12:31; Admin Dose 75 MLS/HR; Start 10/25/17 at 09:30 Metoprolol Tartrate 25 mg 25 mg DAILY PO ; Start 10/25/17 at 09:30 Levofloxacin/ Dextrose (Levaquin 500mg/ D5W 100 ml (Pmx)) 100 ml @ 100 mls/hr Q24H IVPB Last administered on 10/25/17 12:31; Admin Dose 100 MLS/HR; Start 10/25/17 at 11:00 LAVERNE AGUILAR MD Oct 25, 2017 23:13
[2017-10-25 23:57] VITALS: BP 80/54; PULSE 92; RESP 21
[2017-10-26] VITALS (15 sets, daily range): BP systolic 74–142; BP diastolic 55–101; PULSE 82–88; RESP 12–21
[2017-10-26] MEDS ORDERED: ONDANSETRON 4 MG INJ IV PRN
--- NOTE | 2017-10-26 00:20 | OPR ---
Date/Time of Note Date/Time of Note DATE: 10/25/17 TIME: 23:55 Operative Report Procedure Date: Oct 25, 2017 Preoperative Diagnosis Very large left inguinal hernia with descending colon, sigmoid, cecum, small bowel incarcerated with small bowel obstruction. Scrotum is 2-1/2 feet long Postoperative Diagnosis Very large left inguinal hernia with descending colon, sigmoid, cecum, small bowel all incarcerated with small bowel obstruction. Scrotum is 2-1/2 feet long Operation/Procedure Performed 1. Repair of incarcerated descending colon, sigmoid, cecum, and 10 feet of small bowel into a 2-1/2 feet long scrotum 2. Very difficult operation, modifier 22 Surgeon Concetta Thomas MD Roofing Technician Mikaela Love NP Anesthesia Type: general Anesthesiologist: LETTY LOCKWOOD MD Estimated Blood Loss: 50 - 100 ml's Transfusion none Specimen Large hernia sac Grafts/Implants 7.5 x 15 cm polypropylene mesh Tubes/Drains 19 Ukrainian Wan Complications none Pt Condition Post Procedure: stable Disposition: PACU Indications 52-year-old male with 20 year history of incarcerated very large left inguinal hernia who developed obstruction and presented to the emergency room. He was admitted. Patient was very noncompliant throughout his stay and refuses NG tube despite multiple high recommendations. Due to the a non-resolving obstruction and nonreducible bowel decision was made to proceed with surgery and patient was advised that this is a high risk operation. He elects to proceed to surgery. Risks include but are not limited to bleeding, infection, abscess, seroma, leak , damage to intestines or any intra-abdominal/intrapelvic structures, recurrence hernia formation (high probability), chronic pain, need for re- operations or further surgeries, MT, stroke, PE, DVT, pneumonia, organ failures , or even . He is also advised that there is a high risk of chronic pain and loss of testicle. He also has very high probability of seroma or hematoma formation with subsequent infection. Patient understands all these and elects to proceed with surgery. He continues to be very difficult prior to the surgery and continued to refuse NG tube despite his stomach being full with a high rate of aspiration. Procedure Description Patient was brought into the operating room, placed supine on the operating table, SCDs were placed, preoperative antibiotics administered, all pressure points were well-padded, and after induction of anesthesia timeout was performed and he was prepped and draped in usual sterile fashion. 2 people had to elevate his scrotum to be able to properly prep it. Incision was made parallel to the inguinal ligament and that incision was extended through subcutaneous tissue all the way down to external oblique fascia. The fascia was opened sharply with scalpel. The fascia was further opened medially and laterally using Metzenbaums. The floor of the hernia was completely obliterated. Care was taken not to injure the ilioinguinal nerve. This nerve was identified and preserved throughout the case. However at the end of the case since there was very close attachments of it to the mesh decision was made to excise the nerve. The nerve was tied at both ends with 2-0 Vicryl and the rest was excised. A large direct hernia was identified including an total 10 feet of small bowel, left and sigmoid colon, and cecum. The hernia was dissected and from the spermatic structures. Reducing the bowel was very difficult and the incision had to be extended more medially and also inferiorly into the scrotum to be able to reduce this large hernia. A very large sac was excised from all these intestines that were identified and sent to pathology. There was significant bleeding from all the raw surfaces which were controlled by the end of the operation. It was also very difficult to push all the intestines back into the abdomen since there was not much room for all these intestines. Patient had to be deeply paralyzed and put in Trendelenburg and very gently and meticulously the intestines were placed back can. The peritoneum was closed with 2-0 Vicryl in a running fashion to be able to keep the intestines in the abdomen. 7.5 x 10 cm polypropylene mesh was used to re-create the floor. The mesh was secured to the pubic tubercle using 0 Prolene 2. The Prolene was run inferiorly along the shelving edge lateral to the internal ring. The other suture was ran along the conjoined tendon lateral to the internal ring as well. Slit was created in the mesh to allow the cord structures to pass through it ( the internal ring) into the scrotum. The mesh was closed laterally around the spermatic structures leaving enough space for the spermatic cord. There was complete hemostasis. Wound was thoroughly irrigated. The external oblique fascia was closed in a running fashion using 2-0 Vicryl suture leaving enough space for external ring. 19 Ukrainian Wan was placed to the left abdomen into the large space of the scrotum. The testicle that was exteriorized was sutured to the base of the scrotum with 2-0 Vicryl sutures to keep it from torsion. Afia's fascia was closed with 3-0 Vicryl in a running fashion followed by staple closure of the skin. Dressing was applied. All counts were correct at the end the operation 2. Patient was recovered and taken back to PACU in stable condition. However in the recovery room patient immediately pulled out his critical NG tube to decompress his distended large stomach and started being very violent towards staff in recovery room. Patient continues to refuse NG tube and is difficult to manage. He is put on restraints. CONCETTA THOMAS MD Oct 26, 2017 00:06
[2017-10-26] MEDS: morphine 2 MG INJ IV PRN ×6 (01:24→19:40)
[2017-10-26 06:28] LABS: BASOPHIL # 0.1 10^3/ul (0.0-0.1); BASOPHILS % 0.5 % (0.0-2.0); EOSINOPHILS % 0.2 % (0.0-7.0); HEMATOCRIT 40.8 % (42.0-52.0); HEMOGLOBIN 13.5 g/dl (14.0-18.0); LYMPHOCYTES # 0.9 10^3/ul (0.8-2.9); LYMPHOCYTES % 5.1 % (15.0-51.0); MEAN CORPUSCULAR HEMOGLOBIN 30.9 pg (29.0-33.0); MEAN CORPUSCULAR HGB CONC 33.1 g/dl (32.0-37.0); MEAN CORPUSCULAR VOLUME 93.4 fl (82.0-101.0); MEAN PLATELET VOLUME 10.9 fl (7.4-10.4); MONOCYTE # 1.5 10^3/ul (0.3-0.9); MONOCYTES % 8.1 % (0.0-11.0); NEUTROPHIL # 15.3 10^3/ul (1.6-7.5); NEUTROPHILS % 85.7 % (39.0-77.0); PLATELET COUNT 260 10^3/UL (140-415); RED BLOOD COUNT 4.37 10^6/ul (4.70-6.10); RED CELL DISTRIBUTION WIDTH 12.9 % (11.5-14.5); WHITE BLOOD COUNT 17.9 10^3/ul (4.8-10.8)
[2017-10-26 06:50] LABS: ALBUMIN 2.9 g/dl (3.3-4.9); ALBUMIN/GLOBULIN RATIO 1.03; BILIRUBIN,INDIRECT 0.5 mg/dl (0-1.1); BILIRUBIN,TOTAL 0.5 mg/dl (0.2-1.3); CALCIUM 9.6 mg/dl (8.4-10.2); CREATININE 1.66 mg/dl (0.61-1.24); POTASSIUM 4.6 mmol/L (3.5-5.1); TOTAL PROTEIN 5.7 g/dl (6.1-8.1)
--- NOTE | 2017-10-26 08:48 | PN ---
Date/Time of Note Date/Time of Note DATE: 10/26/17 TIME: 08:34 Assessment/Plan Lines/Catheters IV Catheter Type (from Nrsg): Peripheral IV Assessment/Plan Chief Complaint/Hosp Course 1. Very large chronic (20 years) left inguinal hernia: s/p hernia repair 10/25 -elevate when in bed -scrotal support -IS -ice pack -brady drain care -pain management -ngt -abd binder -ambulate -PT eval & treat 2. SBO, possible partial secondary to above -npo for now until return of bowel function 3. Leukocytosis: afebrile 4. Anemia -Monitor 5. Smoker -Highly encouraged cessation 6. Renal insufficiency -Judicious fluid management -Avoid nephrotoxic agents 7. Hypertension -Diet and medication optimization encouraged Thank you. Patient seen and examined in collaboration with Dr. Trell Guo. Problems: Subjective 24 Hr Interval Summary S/p hernia repair. Removed NGT and refusing to have it reinserted. Mod pain in abdomen. +flatus. No fevers, chills, sob, congested cough, cp, palpitations, doll , dizziness, n/v/d/dysuria. Exam/Review of Systems Vital Signs Vitals Vital Signs Date Time Temp Pulse Resp B/P Pulse Ox O2 Delivery O2 Flow Rate FiO2 10/26/17 08:00 98.6 107 18 136/92 93 10/26/17 00:47 Room Air Intake and Output 10/25/17 10/25/17 10/26/17 15:00 23:00 07:00 Intake Total 320 ml 413 ml 1210 ml Output Total 120 ml Balance 320 ml 413 ml 1090 ml Exam Free Text/Dictation Constitutional: alert, oriented, No distress Psych: Anxiety Head: atraumatic, normocephalic Eyes: PERRL, nl conjunctiva, No icteric ENMT: mucosa pink and moist, nl external ears & nose, nl lips & teeth Neck: jvd, non-tender, supple Respiratory: normal air movement, No congested cough, No labored breathing Cardiovascular: edema, No regular rate and rhythm Gastrointestinal: mod distended, soft, tender, left BRADY drain min sanguinous drainage No rebound or guarding Genitourinary - Male: Left inguinal/scrotal skin flat, no discoloration, min tender Musculoskeletal: No joint tenderness Extremities: normal pulses, No calf tenderness Neurological: nl speech, nl strength, No CAFETERIA WORKER II-XII intact, No confused, No nl mental status Skin: nl turgor, No diaphoresis, No rash or lesions Lymph: nl lymph nodes Results Result Diagram: 10/26/17 0559 10/26/17 0559 AMY GAMBOA NP Oct 26, 2017 08:46
[2017-10-26] MEDS: METOPROLOL 25 MG TAB PO SCH (08:55)
--- NOTE | 2017-10-26 09:53 | PN ---
Date/Time of Note Date/Time of Note DATE: 10/26/17 TIME: 09:45 Assessment/Plan VTE Prophylaxis VTE Prophylaxis Intervention: SCD's Lines/Catheters IV Catheter Type (from [facility]): Peripheral IV Assessment/Plan Chief Complaint/Hosp Course 52-year-old male with chronic scrotal/inguinal hernia with hugely swollen scrotum for around 20 years, now presenting to the emergency room with sudden onset of excruciating scrotal pain who is noted with large incarcerated left sided scrotal hernia/inguinal hernia with small bowel obstruction. 1.Massive left-sided scrotal hernia/inguinal hernia occupying entire sigmoid colon and cecum causing partial small bowel obstruction and left hydroureteronephrosis. Status: Acute on chronic. -Expert care of surgery team appreciated. Patient is status post Repair of incarcerated hernia, difficult operation on 10/25/2017. Significant reduction in the size of scrotum. -Start antibiotics with anaerobic coverage IV Cipro and Flagyl due to the nature of abdominal surgery with high-risk complications -NPO until cleared from surgery, pain medications and IV fluids. -Continue to elevate scrotum. 2. CATRINA, likely with left hydroureteronephrosis versus CKD. -Nephrology following. We will follow-up with recommendations. -Monitor renal function closely and will consider nephrology if indicated. 3. Essential hypertension. Patient also noncompliant with antihypertensives as outpatient. -Continue IV hydralazine as needed for now. We will resume oral beta-blockers when stable for p.o. 4. Leukocytosis, likely reactive versus possible infectious source. -Obtain blood culture. Follow-up on urine culture. -Continue empiric antibiotics. 5. Possible homelessness. Patient reported that he lives in his friend's [facility]. -bridge ironworker helper consult requested. 6. Substance abuse/nicotine abuse. Cessation advised. Prophylaxis: SCDs/Pepcid. Plan: Follow-up with surgery recommendations. Patient is at high risk for complications secondary to high risk difficult operation. Patient was seen in collaboration with . Problems: Subjective 24 Hr Interval Summary Free Text/Dictation Status post hernia repair, very difficult operation. Patient with abdominal pain. Afebrile. Exam/Review of Systems Vital Signs Vitals Vital Signs Date Time Temp Pulse Resp B/P Pulse Ox O2 Delivery O2 Flow Rate FiO2 10/26/17 08:00 98.6 107 18 136/92 93 10/26/17 00:47 Room Air Intake and Output 10/25/17 10/25/17 10/26/17 15:00 23:00 07:00 Intake Total 320 ml 413 ml 1210 ml Output Total 120 ml Balance 320 ml 413 ml 1090 ml Exam General: Well developed,adequately built, somewhat disheveled male not in any acute distress . HEENT: Normocephalic, Atraumatic, No laceration or hematoma; Eyes: PEERL, Conjunctiva clear, Anicteric sclera Neck: Supple without any lymphadenopathy, nontender, no JVD, no carotid bruits, trachea midline, no thyromegaly Cardiac: S1, S2 auscultated, regular rhythm and rate, no mumurs or gallop Pulmonary: Normal respiratory effort. Chest clear to auscultation bilaterally, no adventitious breath sounds GI: Abdomen tender/tight to inspection. No bowel sounds audible. Genitourinary: Status post hernia repair with reduction in size of scrotum. Extremities: No cyanosis, clubbing, or edema. Pulses [2+] bilaterally. Full ROM on all four extremities. No focal weakness appreciated. Neurologic: Alert to person, place, time, and situation. Affect appropriate, intact sensation. Skin: Clean,dry, and intact. No ecchymosis, no rashes, or lesions Results Result Diagram: 10/26/17 0559 10/26/17 0559 Results 24 hrs Laboratory Tests Test 10/25/17 10:32 10/25/17 16:00 10/26/17 05:56 10/26/17 05:59 Hemoglobin A1c 5.6 Triglycerides Level 106 Cholesterol Level 122 LDL Cholesterol, Calculated 68 HDL Cholesterol 33 Cholesterol/HDL Ratio 3.6 Thyroid Stimulating Hormone (TSH) 0.498 Urine Color YELLOW Urine Clarity CLEAR Urine pH 5.0 Urine Specific [place] 1.010 Urine Ketones NEGATIVE Urine Nitrite NEGATIVE Urine Bilirubin NEGATIVE Urine Urobilinogen NEGATIVE Urine Leukocyte Esterase NEGATIVE Urine Hemoglobin NEGATIVE Urine Random Creatinine 100.55 Urine Random Sodium 71 Urine Glucose NEGATIVE Urine Total Protein NEGATIVE Magnesium Level 1.5 L White Blood Count 17.9 #H Red Blood Count 4.37 L Hemoglobin 13.5 L Hematocrit 40.8 L Mean Corpuscular Volume 93.4 Mean Corpuscular Hemoglobin 30.9 Mean Corpuscular Hemoglobin Concent 33.1 Red Cell Distribution Width 12.9 Platelet Count 260 Mean Platelet Volume 10.9 H Neutrophils % 85.7 H Lymphocytes % 5.1 L Monocytes % 8.1 Eosinophils % 0.2 Basophils % 0.5 Nucleated Red Blood Cells % 0.0 Neutrophils # 15.3 H Lymphocytes # 0.9 Monocytes # 1.5 H Eosinophils # 0.0 Basophils # 0.1 Nucleated Red Blood Cells # 0.0 Sodium Level 139 Potassium Level 4.6 Chloride Level 106 Carbon Dioxide Level 26 Anion Gap 12 Blood Urea Nitrogen 19 Creatinine 1.66 H Glucose Level 119 # Calcium Level 9.6 Total Bilirubin 0.5 Direct Bilirubin 0.00 Indirect Bilirubin 0.5 Aspartate Amino Transf (AST/SGOT) 20 Alanine Aminotransferase (ALT/SGPT) 39 Alkaline Phosphatase 73 Total Protein 5.7 #L Albumin 2.9 #L Globulin 2.80 Albumin/Globulin Ratio 1.03 Medications Medications Current Medications Hydralazine HCl 10 mg 10 mg Q4H PRN IV SBP above 160 Last administered on 01:42; Admin Dose 10 MG; Start 10/24/17 at 21:30 Sodium Chloride (NS) 1,000 ml @ 75 mls/hr [id number] IV Last administered on 10/25 12:31; Admin Dose 75 MLS/HR; Start 10/25/17 at 09:30 Metoprolol Tartrate (Lopressor) 25 mg DAILY PO ; Start 10/25/17 at 09:30 Ondansetron HCl (Zofran Inj) 4 mg Q6H PRN IV NAUSEA AND/OR VOMITING; Start 10/26/17 at 00:00 Morphine Sulfate 2 mg 2 mg Q2H PRN IV PAIN Last administered on 10/26/17 08:55 ; Admin Dose 2 MG; Start 10/26/17 at 00:00 Ciprofloxacin/ Dextrose 200 ml @ 200 mls/hr Q12 IVPB ; Start 10/26/17 at 21:00 ; Status UNV Metronidazole (Flagyl 500 Mg (Pmx)) 100 ml @ 100 mls/hr Q8 IVPB ; Start at 14:00; Status UNV RICHARD HICKMAN NP Oct 26, 2017 09:53
[2017-10-26] MEDS: CIPROFLOXACIN 400MG/D5W 200 ML IVPB SCH ×2 (10:30→21:10)
[2017-10-26] MEDS: SOD CHLORIDE 0.9% 1,000 ML IV SCH (10:31)
[2017-10-26] MEDS: FAMOTIDINE 20 MG INJ IV SCH ×2 (10:36→21:10)
[2017-10-26] MEDS ORDERED: MAGNESIUM SULFATE 3 GM in DEXTROSE 5% 100 ML IVPB ONE (11:00)
[2017-10-26] MEDS: metroNIDAZOLE 500 MG/NS (PMX) 100 ML IVPB SCH ×3 (13:30→21:10)
--- NOTE | 2017-10-26 15:31 | CONS ---
Date/Time of Note Date/Time of Note DATE: 10/26/17 TIME: 15:28 Assessment/Plan Assessment/Plan Additional Assessment/Plan 52-year-old male with 1.Massive left-sided scrotal hernia/inguinal hernia POD #1 2 Partial small bowel obstruction and left hydroureteronephrosis. 3.CATRINA vs CKD 2nd to above. 4.Essential hypertension. 5.Leukocytosis 6.Hypercalcemia- resolved 7. Hypomagnesemia S/p Hernia repair Agree with IVFs cont current rate Check bladder scan q shift. Repeat chemstry in am S/p Mg supplement Cont current Rx and plan Will cont to follow along with you. Will cont to monitor BP, Consider change to labetalol at this time If necessary can start lasix instead of HCTZ due to hypercalcemia Thank you fo the opportunity to participate in the care of Mr Poole. Consultation Date/Type/Reason Admit Date/Time Oct 24, 2017 at 19:31 Initial Consult Date 10/25/17 Type of Consultation: Renal Referring Provider: RICHARD HICKMAN NP 24 HR Interval Summary Free Text/Dictation S/p Hernia repair. Pt voided multiple times this am. Constitutional: No requiring O2 Exam/Review of Systems Vital Signs Vitals Vital Signs Date Time Temp Pulse Resp B/P Pulse Ox O2 Delivery O2 Flow Rate FiO2 10/26/17 14:47 99.3 105 18 136/90 93 10/26/17 00:47 Room Air Intake and Output 10/25/17 10/25/17 10/26/17 14:59 22:59 06:59 Intake Total 320 ml 413 ml 1210 ml Output Total 120 ml Balance 320 ml 413 ml 1090 ml Exam Constitutional: alert, oriented Head: atraumatic Eyes: EOMI ENMT: mucosa pink and moist Respiratory: clear to auscultation, No labored breathing Cardiovascular: regular rate and rhythm, No edema Gastrointestinal: distended, soft, tender Musculoskeletal: nl extremities to inspection Neurological: ICE RINK ATTENDANT II-XII intact, nl mental status Skin: No diaphoresis Results Result Diagram: 10/26/17 0559 10/26/17 0559 Results 24 hrs Laboratory Tests Test 10/25/17 16:00 10/26/17 05:56 10/26/17 05:59 Urine Color YELLOW Urine Clarity CLEAR Urine pH 5.0 Urine Specific [place] 1.010 Urine Ketones NEGATIVE Urine Nitrite NEGATIVE Urine Bilirubin NEGATIVE Urine Urobilinogen NEGATIVE Urine Leukocyte Esterase NEGATIVE Urine Hemoglobin NEGATIVE Urine Random Creatinine 100.55 Urine Random Sodium 71 Urine Glucose NEGATIVE Urine Total Protein NEGATIVE Magnesium Level 1.5 L White Blood Count 17.9 #H Red Blood Count 4.37 L Hemoglobin 13.5 L Hematocrit 40.8 L Mean Corpuscular Volume 93.4 Mean Corpuscular Hemoglobin 30.9 Mean Corpuscular Hemoglobin Concent 33.1 Red Cell Distribution Width 12.9 Platelet Count 260 Mean Platelet Volume 10.9 H Neutrophils % 85.7 H Lymphocytes % 5.1 L Monocytes % 8.1 Eosinophils % 0.2 Basophils % 0.5 Nucleated Red Blood Cells % 0.0 Neutrophils # 15.3 H Lymphocytes # 0.9 Monocytes # 1.5 H Eosinophils # 0.0 Basophils # 0.1 Nucleated Red Blood Cells # 0.0 Sodium Level 139 Potassium Level 4.6 Chloride Level 106 Carbon Dioxide Level 26 Anion Gap 12 Blood Urea Nitrogen 19 Creatinine 1.66 H Glucose Level 119 # Calcium Level 9.6 Total Bilirubin 0.5 Direct Bilirubin 0.00 Indirect Bilirubin 0.5 Aspartate Amino Transf (AST/SGOT) 20 Alanine Aminotransferase (ALT/SGPT) 39 Alkaline Phosphatase 73 Total Protein 5.7 #L Albumin 2.9 #L Globulin 2.80 Albumin/Globulin Ratio 1.03 Medications Medications Current Medications Hydralazine HCl 10 mg 10 mg Q4H PRN IV SBP above 160 Last administered on 01:42; Admin Dose 10 MG; Start 10/24/17 at 21:30 Sodium Chloride (NS) 1,000 ml @ 75 mls/hr [id number] IV Last administered on 10/26 10:31; Admin Dose 75 MLS/HR; Start 10/25/17 at 09:30 Metoprolol Tartrate (Lopressor) 25 mg DAILY PO ; Start 10/25/17 at 09:30 Ondansetron HCl (Zofran Inj) 4 mg Q6H PRN IV NAUSEA AND/OR VOMITING; Start 10/26/17 at 00:00 Morphine Sulfate 2 mg 2 mg Q2H PRN IV PAIN Last administered on 10/26/17 13:26 ; Admin Dose 2 MG; Start 10/26/17 at 00:00 Ciprofloxacin/ Dextrose 200 ml @ 200 mls/hr Q12 IVPB Last administered on 10/26 10:30; Admin Dose 200 MLS/HR; Start 10/26/17 at 10:00 Metronidazole (Flagyl 500 Mg (Pmx)) 100 ml @ 100 mls/hr Q8 IVPB ; Start at 14:00 Famotidine (Pepcid Iv) 20 mg BID IV Last administered on 10/26/17 10:36; Admin Dose 20 MG; Start 10/26/17 at 10:00 DAKOTA HUTCHINSON MD Oct 26, 2017 15:31
[2017-10-27] MEDS: SOD CHLORIDE 0.9% 1,000 ML IV SCH ×3 (01:29→14:50)
[2017-10-27] MEDS: morphine 2 MG INJ IV PRN ×3 (01:50→08:49)
[2017-10-27 02:17] VITALS: BP 156/102; RESP 20
[2017-10-27] MEDS: metroNIDAZOLE 500 MG/NS (PMX) 100 ML IVPB SCH ×3 (05:14→21:56)
[2017-10-27 06:18] LABS: BASOPHIL # 0.1 10^3/ul (0.0-0.1); BASOPHILS % 0.6 % (0.0-2.0); EOSINOPHILS # 0.3 10^3/ul (0.0-0.5); EOSINOPHILS % 2.5 % (0.0-7.0); HEMATOCRIT 35.2 % (42.0-52.0); HEMOGLOBIN 11.5 g/dl (14.0-18.0); LYMPHOCYTES % 7.5 % (15.0-51.0); MEAN CORPUSCULAR HEMOGLOBIN 30.3 pg (29.0-33.0); MEAN CORPUSCULAR HGB CONC 32.7 g/dl (32.0-37.0); MEAN CORPUSCULAR VOLUME 92.9 fl (82.0-101.0); MEAN PLATELET VOLUME 11.2 fl (7.4-10.4); MONOCYTE # 1.4 10^3/ul (0.3-0.9); MONOCYTES % 10.1 % (0.0-11.0); NEUTROPHIL # 10.6 10^3/ul (1.6-7.5); NEUTROPHILS % 78.9 % (39.0-77.0); PLATELET COUNT 211 10^3/UL (140-415); RED BLOOD COUNT 3.79 10^6/ul (4.70-6.10); RED CELL DISTRIBUTION WIDTH 12.8 % (11.5-14.5); WHITE BLOOD COUNT 13.4 10^3/ul (4.8-10.8)
[2017-10-27 06:42] LABS: CALCIUM 9.7 mg/dl (8.4-10.2); CREATININE 1.54 mg/dl (0.61-1.24); MAGNESIUM 2.1 mg/dl (1.7-2.5); POTASSIUM 4.1 mmol/L (3.5-5.1)
[2017-10-27 07:51] VITALS: BP 145/98; RESP 18
[2017-10-27] MEDS: FAMOTIDINE 20 MG INJ IV SCH ×2 (08:42→20:58)
[2017-10-27] MEDS: CIPROFLOXACIN 400MG/D5W 200 ML IVPB SCH ×2 (08:42→20:56)
[2017-10-27] MEDS: METOPROLOL 25 MG TAB PO SCH (08:42)
[2017-10-27] MEDS ORDERED: SOD CHLORIDE 0.9% 500 ML IV ONE (09:30)
--- NOTE | 2017-10-27 09:51 | PN ---
Date/Time of Note Date/Time of Note DATE: 10/27/17 TIME: 09:49 Assessment/Plan VTE Prophylaxis VTE Prophylaxis Intervention: SCD's Lines/Catheters IV Catheter Type (from [facility]): Peripheral IV Urinary Cath still in place: No Assessment/Plan Chief Complaint/Hosp Course 52-year-old male with chronic scrotal/inguinal hernia with hugely swollen scrotum for around 20 years, now presenting to the emergency room with sudden onset of excruciating scrotal pain who is noted with large incarcerated left sided scrotal hernia/inguinal hernia with small bowel obstruction. 1.Massive left-sided scrotal hernia/inguinal hernia occupying entire sigmoid colon and cecum causing partial small bowel obstruction and left hydroureteronephrosis. Status: Acute on chronic. -Expert care of surgery team appreciated. Patient is status post Repair of incarcerated hernia, difficult operation on 10/25/2017. Significant reduction in the size of scrotum. Continue antibiotics with anaerobic coverage (IV Cipro and Flagyl) due to the nature of abdominal surgery with high-risk complications -Diet per surgery -Continue IV fluids and change pain meds to Dilaudid. -Continue to elevate scrotum. 2. CATRINA, likely with left hydroureteronephrosis versus CKD. Renal function stabilizing. -Nephrology following. We will follow-up with recommendations. -Monitor renal function closely and will consider nephrology if indicated. 3. Essential hypertension. Patient also noncompliant with antihypertensives as outpatient. -Continue IV hydralazine as needed for now. We will resume oral beta-blockers when stable for p.o. 4. Leukocytosis, likely reactive versus possible infectious source. -Follow-up blood culture. -Continue empiric antibiotics. 5. Possible homelessness. Patient reported that he lives in his friend's garage. -collision worker consult requested. 6. Substance abuse/nicotine abuse. Cessation advised. Prophylaxis: SCDs/Pepcid. Plan: Follow-up with surgery recommendations. Patient is at high risk for complications secondary to high risk difficult operation. Continue inpatient care. Patient was seen in collaboration with Problems: Subjective 24 Hr Interval Summary Free Text/Dictation Patient remains afebrile. He continues to have abdominal pain. Exam/Review of Systems Vital Signs Vitals Vital Signs Date Time Temp Pulse Resp B/P Pulse Ox O2 Delivery O2 Flow Rate FiO2 10/27/17 07:51 98.9 95 18 145/98 94 10/26/17 00:47 Room Air Intake and Output 10/26/17 10/26/17 10/27/17 15:00 23:00 07:00 Intake Total 527 ml 700 ml 800 ml Output Total 45 ml 140 ml 560 ml Balance 482 ml 560 ml 240 ml Exam General: Well developed,adequately built, somewhat disheveled male not in any acute distress . HEENT: Normocephalic, Atraumatic, No laceration or hematoma; Eyes: PEERL, Conjunctiva clear, Anicteric sclera Neck: Supple without any lymphadenopathy, nontender, no JVD, no carotid bruits, trachea midline, no thyromegaly Cardiac: S1, S2 auscultated, regular rhythm and rate, no mumurs or gallop Pulmonary: Normal respiratory effort. Chest clear to auscultation bilaterally, no adventitious breath sounds GI: Abdomen tender/tight to inspection. No bowel sounds audible. Genitourinary: Status post hernia repair with reduction in size of scrotum. Extremities: No cyanosis, clubbing, or edema. Pulses [2+] bilaterally. Full ROM on all four extremities. No focal weakness appreciated. Neurologic: Alert to person, place, time, and situation. Affect appropriate, intact sensation. Skin: Clean,dry, and intact. No ecchymosis, no rashes, or lesions Results Result Diagram: 10/27/1728 10/27/1728 Results 24 hrs Laboratory Tests Test 10/27/17 05:28 White Blood Count 13.4 #H Red Blood Count 3.79 L Hemoglobin 11.5 L Hematocrit 35.2 L Mean Corpuscular Volume 92.9 Mean Corpuscular Hemoglobin 30.3 Mean Corpuscular Hemoglobin Concent 32.7 Red Cell Distribution Width 12.8 Platelet Count 211 Mean Platelet Volume 11.2 H Neutrophils % 78.9 H Lymphocytes % 7.5 L Monocytes % 10.1 Eosinophils % 2.5 Basophils % 0.6 Nucleated Red Blood Cells % 0.0 Neutrophils # 10.6 H Lymphocytes # 1.0 Monocytes # 1.4 H Eosinophils # 0.3 Basophils # 0.1 Nucleated Red Blood Cells # 0.0 Sodium Level 139 Potassium Level 4.1 Chloride Level 105 Carbon Dioxide Level 28 Anion Gap 10 Blood Urea Nitrogen 27 H Creatinine 1.54 H Glucose Level 124 Calcium Level 9.7 Magnesium Level 2.1 Medications Medications Current Medications Hydralazine HCl 10 mg 10 mg Q4H PRN IV SBP above 160 Last administered on 01:42; Admin Dose 10 MG; Start 10/24/17 at 21:30 Sodium Chloride (NS) 1,000 ml @ 75 mls/hr [id number] IV Last administered on 10/27 05:14; Admin Dose 75 MLS/HR; Start 10/25/17 at 09:30 Metoprolol Tartrate (Lopressor) 25 mg DAILY PO ; Start 10/25/17 at 09:30 Ondansetron HCl 4 mg 4 mg Q6H PRN IV NAUSEA AND/OR VOMITING; Start 10/26/17 at 00:00 Ciprofloxacin/ Dextrose 200 ml @ 200 mls/hr Q12 IVPB Last administered on 10/27 08:42; Admin Dose 200 MLS/HR; Start 10/26/17 at 10:00 Metronidazole (Flagyl 500 Mg (Pmx)) 100 ml @ 100 mls/hr Q8 IVPB Last administered on 10/27/17 05:14; Admin Dose 100 MLS/HR; Start 10/26/17 at 14:00 Famotidine 20 mg 20 mg BID IV Last administered on 10/27/17 08:42; Admin Dose 20 MG; Start 10/26/17 at 10:00 Sodium Chloride (NS) 500 ml @ 500 mls/hr Q1H ONCE IV ; Start 10/27/17 at 09:30 ; Stop 10/27/17 at 10:29 Hydromorphone HCl (Dilaudid) 1 mg Q3H PRN IV PAIN; Start 10/27/17 at 09:30 RICHARD HICKMAN NP Oct 27, 2017 09:51
--- NOTE | 2017-10-27 09:54 | PN ---
Date/Time of Note Date/Time of Note DATE: 10/27/17 TIME: 09:53 Assessment/Plan Lines/Catheters IV Catheter Type (from Nrs): Peripheral IV Aguirre in Place (from Nrs): No Assessment/Plan Chief Complaint/Hosp Course 1. Very large chronic (20 years) left inguinal hernia: s/p hernia repair 10/25 -elevate when in bed -scrotal support -IS -ice pack -brady drain care -pain management -ngt -abd binder -ambulate -PT eval & treat 2. SBO, possible partial secondary to above; +flatus -will start clears 3. Leukocytosis: afebrile improving -abx 4. Anemia -Monitor 5. Smoker -Highly encouraged cessation 6. Renal insufficiency -Judicious fluid management -Avoid nephrotoxic agents 7. Hypertension- will restart po antihypertensives -Diet and medication optimization encouraged Thank you. Patient seen and examined in collaboration with Dr. Trell Guo. Problems: Subjective 24 Hr Interval Summary Feels ok. Continues to have abdominal tenderness but +flatus, no bm. Continue to have serosanguineous drainage from brday. No fevers, chills, sob, congested cough, cp, palpitations, doll, dizziness, n/v/d/dysuria. Exam/Review of Systems Vital Signs Vitals Vital Signs Date Time Temp Pulse Resp B/P Pulse Ox O2 Delivery O2 Flow Rate FiO2 10/28/17 11:16 Nasal Cannula 2.0 10/28/17 07:48 98.7 95 20 136/105 96 Intake and Output 10/27/17 10/27/17 10/28/17 15:00 23:00 07:00 Intake Total 700 ml 2620 ml 990 ml Output Total 1065 ml 450 ml Balance 700 ml 1555 ml 540 ml Exam Free Text/Dictation Constitutional: alert, oriented, No distress Psych: Anxiety Head: atraumatic, normocephalic Eyes: PERRL, nl conjunctiva, No icteric ENMT: mucosa pink and moist, nl external ears & nose, nl lips & teeth Neck: jvd, non-tender, supple Respiratory: normal air movement, No congested cough, No labored breathing Cardiovascular: edema, No regular rate and rhythm Gastrointestinal: mod distended, soft, tender, left BRADY drain serosanguinous drainage No rebound or guarding Genitourinary - Male: Left inguinal/scrotal skin flat, no discoloration, min tender Musculoskeletal: No joint tenderness Extremities: normal pulses, No calf tenderness Neurological: nl speech, nl strength, No HIGHWAY ENGINEERING TEACHER II-XII intact, No confused, No nl mental status Skin: nl turgor, No diaphoresis, No rash or lesions Lymph: nl lymph nodes Results Result Diagram: 10/28/17 0521 10/28/17 0521 AMY GAMBOA NP Oct 27, 2017 09:54
[2017-10-27] MEDS: HYDROmorphONE 1 MG/ML SYG IV PRN ×4 (11:30→21:56)
--- NOTE | 2017-10-27 12:41 | CONS ---
Date/Time of Note Date/Time of Note DATE: 10/27/17 TIME: 12:40 Assessment/Plan Assessment/Plan Additional Assessment/Plan 52-year-old male with 1.Massive left-sided scrotal hernia/inguinal hernia POD #2 2 Partial small bowel obstruction and left hydroureteronephrosis. 3.CATRINA vs CKD 2nd to above. 4.Essential hypertension. 5.Leukocytosis 6.Hypercalcemia- resolved 7. Hypomagnesemia S/p Hernia repair Agree with IVFs cont current rate Check bladder scan q shift. Cr Stable. Repeat chemstry in am S/p Mg supplement Cont current Rx and plan Will cont to follow along with you. Will cont to monitor BP, Consider change to labetalol at this time If necessary can start lasix instead of HCTZ due to hypercalcemia Thank you fo the opportunity to participate in the care of Mr Poole. Consultation Date/Type/Reason Admit Date/Time Oct 24, 2017 at 19:31 Initial Consult Date 10/25/17 Type of Consultation: Renal Referring Provider: RICHARD HICKMAN NP 24 HR Interval Summary Free Text/Dictation Urinating well, Abd pain. Constitutional: No requiring O2 Exam/Review of Systems Vital Signs Vitals Vital Signs Date Time Temp Pulse Resp B/P Pulse Ox O2 Delivery O2 Flow Rate FiO2 10/27/17 07:51 98.9 95 18 145/98 94 10/26/17 00:47 Room Air Intake and Output 10/26/17 10/26/17 10/27/17 14:59 22:59 06:59 Intake Total 527 ml 700 ml 800 ml Output Total 45 ml 140 ml 560 ml Balance 482 ml 560 ml 240 ml Exam Constitutional: No distress ENMT: mucosa pink and moist Neck: No jvd Cardiovascular: regular rate and rhythm, No edema Gastrointestinal: distended, soft, tender, No rebound or guarding Extremities: No edema Neurological: SENIOR SHIPPING CLERK II-XII intact, nl mental status Skin: No diaphoresis Results Result Diagram: 10/27/1752710/27/17527 Results 24 hrs Laboratory Tests Test 10/27/17 05:28 White Blood Count 13.4 #H Red Blood Count 3.79 L Hemoglobin 11.5 L Hematocrit 35.2 L Mean Corpuscular Volume 92.9 Mean Corpuscular Hemoglobin 30.3 Mean Corpuscular Hemoglobin Concent 32.7 Red Cell Distribution Width 12.8 Platelet Count 211 Mean Platelet Volume 11.2 H Neutrophils % 78.9 H Lymphocytes % 7.5 L Monocytes % 10.1 Eosinophils % 2.5 Basophils % 0.6 Nucleated Red Blood Cells % 0.0 Neutrophils # 10.6 H Lymphocytes # 1.0 Monocytes # 1.4 H Eosinophils # 0.3 Basophils # 0.1 Nucleated Red Blood Cells # 0.0 Sodium Level 139 Potassium Level 4.1 Chloride Level 105 Carbon Dioxide Level 28 Anion Gap 10 Blood Urea Nitrogen 27 H Creatinine 1.54 H Glucose Level 124 Calcium Level 9.7 Magnesium Level 2.1 Medications Medications Current Medications Hydralazine HCl 10 mg 10 mg Q4H PRN IV SBP above 160 Last administered on 01:42; Admin Dose 10 MG; Start 10/24/17 at 21:30 Sodium Chloride (NS) 1,000 ml @ 75 mls/hr [id number] IV Last administered on 10/27 05:14; Admin Dose 75 MLS/HR; Start 10/25/17 at 09:30 Metoprolol Tartrate (Lopressor) 25 mg DAILY PO ; Start 10/25/17 at 09:30 Ondansetron HCl 4 mg 4 mg Q6H PRN IV NAUSEA AND/OR VOMITING; Start 10/26/17 at 00:00 Ciprofloxacin/ Dextrose 200 ml @ 200 mls/hr Q12 IVPB Last administered on 10/27 08:42; Admin Dose 200 MLS/HR; Start 10/26/17 at 10:00 Metronidazole (Flagyl 500 Mg (Pmx)) 100 ml @ 100 mls/hr Q8 IVPB Last administered on 10/27/17 05:14; Admin Dose 100 MLS/HR; Start 10/26/17 at 14:00 Famotidine (Pepcid Iv) 20 mg BID IV Last administered on 10/27/17 08:42; Admin Dose 20 MG; Start 10/26/17 at 10:00 Hydromorphone HCl (Dilaudid) 1 mg Q3H PRN IV PAIN Last administered on 11:30; Admin Dose 1 MG; Start 10/27/17 at 09:30 DAKOTA HUTCHINSON MD Oct 27, 2017 12:41
[2017-10-27 13:11] VITALS: BP 139/100; RESP 18
[2017-10-27 21:47] VITALS: BP 149/105; RESP 18
[2017-10-28] VITALS (7 sets, daily range): BP systolic 116–146; BP diastolic 87–105; PULSE 101–110; RESP 18–22
[2017-10-28] MEDS: HYDROmorphONE 1 MG/ML SYG IV PRN ×4 (00:44→17:53)
[2017-10-28] MEDS: SOD CHLORIDE 0.9% 1,000 ML IV SCH ×3 (03:39→17:30)
[2017-10-28] MEDS: metroNIDAZOLE 500 MG/NS (PMX) 100 ML IVPB SCH ×3 (05:42→23:15)
[2017-10-28 06:15] LABS: BASOPHILS % 0.3 % (0.0-2.0); EOSINOPHILS # 0.5 10^3/ul (0.0-0.5); EOSINOPHILS % 3.9 % (0.0-7.0); HEMATOCRIT 39.3 % (42.0-52.0); HEMOGLOBIN 12.9 g/dl (14.0-18.0); LYMPHOCYTES # 0.9 10^3/ul (0.8-2.9); LYMPHOCYTES % 7.6 % (15.0-51.0); MEAN CORPUSCULAR HEMOGLOBIN 30.8 pg (29.0-33.0); MEAN CORPUSCULAR HGB CONC 32.8 g/dl (32.0-37.0); MEAN CORPUSCULAR VOLUME 93.8 fl (82.0-101.0); MONOCYTE # 1.1 10^3/ul (0.3-0.9); MONOCYTES % 9.2 % (0.0-11.0); NEUTROPHIL # 9.6 10^3/ul (1.6-7.5); NEUTROPHILS % 78.5 % (39.0-77.0); PLATELET COUNT 258 10^3/UL (140-415); RED BLOOD COUNT 4.19 10^6/ul (4.70-6.10); WHITE BLOOD COUNT 12.2 10^3/ul (4.8-10.8)
[2017-10-28 06:56] LABS: CREATININE 1.44 mg/dl (0.61-1.24); POTASSIUM 4.7 mmol/L (3.5-5.1)
[2017-10-28] MEDS: FAMOTIDINE 20 MG INJ IV SCH ×2 (08:28→21:14)
[2017-10-28] MEDS: CIPROFLOXACIN 400MG/D5W 200 ML IVPB SCH ×2 (08:28→21:14)
[2017-10-28] MEDS: METOPROLOL 25 MG TAB PO SCH (08:29)
[2017-10-28] MEDS ORDERED: SOD CHLORIDE 0.9% 500 ML IV ONE (11:30)
--- NOTE | 2017-10-28 11:43 | PN ---
Date/Time of Note Date/Time of Note DATE: 10/28/17 TIME: 11:40 Assessment/Plan VTE Prophylaxis VTE Prophylaxis Intervention: SCD's Lines/Catheters IV Catheter Type (from [facility]): Peripheral IV Urinary Cath still in place: No Assessment/Plan Chief Complaint/Hosp Course 52-year-old male with chronic scrotal/inguinal hernia with hugely swollen scrotum for around 20 years, now presenting to the emergency room with sudden onset of excruciating scrotal pain who is noted with large incarcerated left sided scrotal hernia/inguinal hernia with small bowel obstruction. 1.Massive left-sided scrotal hernia/inguinal hernia occupying entire sigmoid colon and cecum causing partial small bowel obstruction and left hydroureteronephrosis. Status: Acute on chronic. -Expert care of surgery team appreciated. Patient is status post Repair of incarcerated hernia, difficult operation on 10/25/2017. Significant reduction in the size of scrotum. Continue antibiotics with anaerobic coverage (IV Cipro and Flagyl) due to the nature of abdominal surgery with high-risk complications -Diet per surgery -Continue IV fluids and pain meds -Continue to elevate scrotum. 2. CATRINA, likely with left hydroureteronephrosis versus CKD. Renal function stabilizing after fluid bolus. -Nephrology following. We will follow-up with recommendations. -Monitor renal function closely and will consider nephrology if indicated. 3. Essential hypertension. Patient also noncompliant with antihypertensives as outpatient. -Continue IV hydralazine as needed for now. We will resume oral beta-blockers when stable for p.o. 4. Leukocytosis, likely reactive -Cultures negative. 5. Possible homelessness. Patient reported that he lives in his friend's garage. -sheetmetal trades worker consult requested. 6. Substance abuse/nicotine abuse. Cessation advised. Prophylaxis: Postoperative anticoagulation per surgery colleagues. For now patient will be placed on SCDs/Pepcid. Plan: Follow-up with surgery recommendations. Patient is at high risk for complications secondary to high risk difficult operation. Continue inpatient care. Patient was seen in collaboration with Problems: Subjective 24 Hr Interval Summary Free Text/Dictation Overall, improving gradually. Has been started on a clear diet and tolerating. Exam/Review of Systems Vital Signs Vitals Vital Signs Date Time Temp Pulse Resp B/P Pulse Ox O2 Delivery O2 Flow Rate FiO2 10/28/17 11:16 Nasal Cannula 2.0 10/28/17 07:48 98.7 95 20 136/105 96 Intake and Output 10/27/17 10/27/17 10/28/17 14:59 22:59 06:59 Intake Total 700 ml 2520 ml 1090 ml Output Total 1065 ml 450 ml Balance 700 ml 1455 ml 640 ml Exam General: Well developed,adequately built, somewhat ill looking and disheveled male not in any acute distress . HEENT: Normocephalic, Atraumatic, No laceration or hematoma; Eyes: PEERL, Conjunctiva clear, Anicteric sclera Neck: Supple without any lymphadenopathy, nontender, no JVD, no carotid bruits, trachea midline, no thyromegaly Cardiac: S1, S2 auscultated, regular rhythm and rate, no mumurs or gallop Pulmonary: Normal respiratory effort. Chest clear to auscultation bilaterally, no adventitious breath sounds GI: Abdomen tender/tight to inspection. No bowel sounds audible. Genitourinary: Status post hernia repair with reduction in size of scrotum. Extremities: No cyanosis, clubbing, or edema. Pulses [2+] bilaterally. Full ROM on all four extremities. No focal weakness appreciated. Neurologic: Lethargic. But alert to person, place, time, and situation. Affect appropriate, intact sensation. Skin: Clean,dry, and intact. No ecchymosis, no rashes, or lesions Results Result Diagram: 10/28/1752010/28/1721 Results 24 hrs Laboratory Tests Test 10/28/17 05:21 White Blood Count 12.2 H Red Blood Count 4.19 L Hemoglobin 12.9 L Hematocrit 39.3 L Mean Corpuscular Volume 93.8 Mean Corpuscular Hemoglobin 30.8 Mean Corpuscular Hemoglobin Concent 32.8 Red Cell Distribution Width 13.0 Platelet Count 258 # Mean Platelet Volume 11.0 H Neutrophils % 78.5 H Lymphocytes % 7.6 L Monocytes % 9.2 Eosinophils % 3.9 Basophils % 0.3 Nucleated Red Blood Cells % 0.0 Neutrophils # 9.6 H Lymphocytes # 0.9 Monocytes # 1.1 H Eosinophils # 0.5 Basophils # 0.0 Nucleated Red Blood Cells # 0.0 Sodium Level 137 Potassium Level 4.7 Chloride Level 102 Carbon Dioxide Level 25 Anion Gap 15 Blood Urea Nitrogen 27 H Creatinine 1.44 H Glucose Level 125 Calcium Level 10.0 Medications Medications Current Medications Hydralazine HCl 10 mg 10 mg Q4H PRN IV SBP above 160 Last administered on 01:42; Admin Dose 10 MG; Start 10/24/17 at 21:30 Sodium Chloride (NS) 1,000 ml @ 75 mls/hr [id number] IV Last administered on 03:39; Admin Dose 75 MLS/HR; Start 10/25/17 at 09:30 Metoprolol Tartrate (Lopressor) 25 mg DAILY PO Last administered on 10/28/17 08:29; Admin Dose 25 MG; Start 10/25/17 at 09:30 Ondansetron HCl 4 mg 4 mg Q6H PRN IV NAUSEA AND/OR VOMITING; Start 10/26/17 at 00:00 Ciprofloxacin/ Dextrose 200 ml @ 200 mls/hr Q12 IVPB Last administered on 08:28; Admin Dose 200 MLS/HR; Start 10/26/17 at 10:00 Metronidazole (Flagyl 500 Mg (Pmx)) 100 ml @ 100 mls/hr Q8 IVPB Last administered on 10/28/17 05:42; Admin Dose 100 MLS/HR; Start 10/26/17 at 14:00 Famotidine (Pepcid Iv) 20 mg BID IV Last administered on 10/28/17 08:28; Admin Dose 20 MG; Start 10/26/17 at 10:00 Hydromorphone HCl 1 mg 1 mg Q3H PRN IV PAIN Last administered on 10/28/17 09: 23; Admin Dose 1 MG; Start 10/27/17 at 09:30 Sodium Chloride (NS) 500 ml @ 500 mls/hr Q1H ONCE IV ; Start 10/28/17 at 11:30 ; Stop 10/28/17 at 12:29 RICHARD HICKMAN NP Oct 28, 2017 11:43
--- NOTE | 2017-10-28 13:33 | PN ---
Date/Time of Note Date/Time of Note DATE: 10/28/17 TIME: 13:21 Assessment/Plan Lines/Catheters IV Catheter Type (from Nrs): Peripheral IV Aguirre in Place (from Nrs): No Assessment/Plan Chief Complaint/Hosp Course 1. Very large chronic (20 years) left inguinal hernia: s/p hernia repair 10/25 -elevate when in bed -scrotal support -IS -ice pack -brady drain care -pain management-attempt non narcotics first to reduce chance of decreased gastric motility -abd binder -ambulate -PT eval & treat 2. SBO, possible partial secondary to above; +flatus -clears -sbft 3. Leukocytosis: afebrile; improving -abx 4. Anemia -Monitor 5. Smoker -Highly encouraged cessation 6. CATRINA vs. CKD with left hydroureteronephrosis 2/2 kinking from #1; cr improving; +uop -Judicious fluid management -Avoid nephrotoxic agents -per renal 7. Hypertension -Diet and medication optimization encouraged Thank you. Patient seen and examined in collaboration with Dr. Trell Guo. Problems: Subjective 24 Hr Interval Summary Tolerating clear liquids. Abdomen mod distended but still soft. SOB this am but improved now. BRADY with serosanguineous drainage. Tachycardia improved. No fevers , chills, congested cough, cp, palpitations, doll, dizziness, n/v/d/dysuria. Exam/Review of Systems Vital Signs Vitals Vital Signs Date Time Temp Pulse Resp B/P Pulse Ox O2 Delivery O2 Flow Rate FiO2 10/28/17 13:39 98.7 94 22 144/99 95 10/28/17 11:16 Nasal Cannula 2.0 Intake and Output 10/27/17 10/27/17 10/28/17 15:00 23:00 07:00 Intake Total 700 ml 2620 ml 990 ml Output Total 1065 ml 450 ml Balance 700 ml 1555 ml 540 ml Exam Free Text/Dictation Constitutional: alert, oriented, No distress Psych: min Anxiety Head: atraumatic, normocephalic Eyes: PERRL, nl conjunctiva, No icteric ENMT: mucosa pink and moist, nl external ears & nose, nl lips & teeth Neck: jvd, non-tender, supple Respiratory: r M/L lung diminished; L lung clear No congested cough, No labored breathing Cardiovascular: edema, No regular rate and rhythm Gastrointestinal: mod distended, soft, tender, left BRADY drain serosanguinous drainage No rebound or guarding Genitourinary - Male: Left inguinal/scrotal skin flat, no discoloration, min tender Musculoskeletal: No joint tenderness Extremities: normal pulses, No calf tenderness Neurological: nl speech, nl strength, No ONCOLOGY TECHNICIAN II-XII intact, No confused, No nl mental status Skin: nl turgor, left inguinal incision min drainage, no colleen-incisional erythema No diaphoresis, No rash or lesions Lymph: nl lymph nodes Results Result Diagram: 10/28/17 0521 10/28/17 0521 AMY GAMBOA NP Oct 28, 2017 13:32
[2017-10-28] MEDS ORDERED: IBUPROFEN 600 MG TAB PO PRN (14:00)
[2017-10-28] MEDS ORDERED: ACETAMINOPHEN 325 MG TAB PO PRN (14:00)
[2017-10-28] MEDS ORDERED: DIATR MEGLU/DIATRIZOATE SODIUM 120 ML BTL ONE (16:10)
--- NOTE | 2017-10-28 18:51 | RADRPT ---
PROCEDURE: Gastrographin small-bowel follow-through. CLINICAL INDICATION: Abdominal pain. Status post hernia repair. Rule out small bowel obstruction. TECHNIQUE: Multiple overhead radiographs of the upper gastrointestinal tract were obtained followi ng oral ingestion of 120 cc of gastrographin.. The patient tolerated the procedure well without com plication. Subsequently, continued small-bowel follow-through was obtained to the point of the large bowel opacification. Fluoroscopic time: 0 Number of images/sequences: 12 COMPARISON: None available FINDINGS: The cell room operator film the abdomen postsurgical changes with skin junior and drainage catheter in the left lower pelvis from recent hernia repair. There are mildly distended small bowel loops in the left upp er quadrant. Gas and stool seen throughout the colon and rectum. Small-bowel follow-through: Limited evaluation of the stomach and duodenum appears within normal limits. The proximal jejunum i s mildly distended. The distal ileum is normal. Transit time is normal reaching the right colon i n less than 2 hours.. No complete small bowel obstruction, stricture, or mass lesion is seen. IMPRESSION: 1. Mild dilatation of proximal small bowel loops in the left upper quadrant with normal transit of contrast through the small bowels to the colon in less than 2 hours. Findings may be consistent with mild postsurgical ileus versus early or partial small bowel obstruction. Recommend follow-up. 2. Postsurgical changes in the left pelvis from recent hernia repair. RPTAT: QQ .Olvin Barkley MD, MD Date Time Electronically viewed and signed by .Olvin Barkley MD, on 10/28/2017 18:50 .L/
[2017-10-29] MEDS: HYDROmorphONE 1 MG/ML SYG IV PRN ×4 (00:50→20:15)
[2017-10-29 02:01] VITALS: BP 143/96; RESP 18
[2017-10-29] MEDS: SOD CHLORIDE 0.9% 1,000 ML IV SCH ×2 (03:57→20:19)
[2017-10-29 05:57] LABS: BASOPHILS % 0.4 % (0.0-2.0); EOSINOPHILS # 0.7 10^3/ul (0.0-0.5); HEMATOCRIT 35.2 % (42.0-52.0); HEMOGLOBIN 11.6 g/dl (14.0-18.0); LYMPHOCYTES # 1.3 10^3/ul (0.8-2.9); LYMPHOCYTES % 17.1 % (15.0-51.0); MEAN CORPUSCULAR HEMOGLOBIN 30.9 pg (29.0-33.0); MEAN CORPUSCULAR VOLUME 93.9 fl (82.0-101.0); MEAN PLATELET VOLUME 10.9 fl (7.4-10.4); MONOCYTE # 1.1 10^3/ul (0.3-0.9); MONOCYTES % 14.4 % (0.0-11.0); NEUTROPHIL # 4.2 10^3/ul (1.6-7.5); NEUTROPHILS % 57.7 % (39.0-77.0); PLATELET COUNT 212 10^3/UL (140-415); RED BLOOD COUNT 3.75 10^6/ul (4.70-6.10); RED CELL DISTRIBUTION WIDTH 12.9 % (11.5-14.5); WHITE BLOOD COUNT 7.3 10^3/ul (4.8-10.8)
[2017-10-29 06:16] LABS: CALCIUM 9.5 mg/dl (8.4-10.2); CREATININE 1.25 mg/dl (0.61-1.24); POTASSIUM 3.6 mmol/L (3.5-5.1)
[2017-10-29] MEDS: metroNIDAZOLE 500 MG/NS (PMX) 100 ML IVPB SCH ×3 (06:36→21:52)
[2017-10-29 07:38] VITALS: BP 143/98; RESP 18
[2017-10-29] MEDS ORDERED: ENOXAPARIN 40 MG/0.4 ML SYG SC SCH (09:00)
[2017-10-29] MEDS: FAMOTIDINE 20 MG INJ IV SCH ×2 (09:22→20:19)
[2017-10-29] MEDS: CIPROFLOXACIN 400MG/D5W 200 ML IVPB SCH ×2 (09:22→20:18)
[2017-10-29] MEDS: METOPROLOL 25 MG TAB PO SCH (09:22)
[2017-10-29] MEDS: HEPARIN 5,000 UNIT/0.5 ML VIAL SC SCH ×2 (09:52→20:15)
--- NOTE | 2017-10-29 10:19 | PN ---
Date/Time of Note Date/Time of Note DATE: 10/29/17 TIME: 10:13 Assessment/Plan Lines/Catheters IV Catheter Type (from Nrs): Peripheral IV Aguirre in Place (from Nrs): No Assessment/Plan Chief Complaint/Hosp Course 1. Very large chronic (20 years) left inguinal hernia: s/p hernia repair 10/25 -elevate when in bed -scrotal support -IS-educated on importance; encourage use -ice pack -brady drain care -pain management-attempt non narcotics first to reduce chance of decreased gastric motility -abd binder -ambulate -PT eval & treat 2. SBO, possible partial secondary to above; +bowel function; sbft noted without obstruction -clears 3. Leukocytosis: afebrile; normalized -cont abx 4. Anemia -Monitor 5. Smoker -Highly encouraged cessation 6. CATRINA vs. CKD with left hydroureteronephrosis 2/2 kinking from #1; cr up +uop -Judicious fluid management -Avoid nephrotoxic agents -per renal 7. Hypertension -Diet and medication optimization encouraged 8. Debility: -PT; encourage ambulation Thank you. Patient seen and examined in collaboration with Dr. Trell Guo. Problems: Subjective 24 Hr Interval Summary Abdominal tenderness with intermittent cramping. SBFT noted. +bowel function. BRADY with serosanguineous drainage. Min temp. No fevers, chills, sob, congested cough, cp, palpitations, doll, dizziness, n/v/d/dysuria. Exam/Review of Systems Vital Signs Vitals Vital Signs Date Time Temp Pulse Resp B/P Pulse Ox O2 Delivery O2 Flow Rate FiO2 10/29/17 07:38 98.2 82 18 143/98 91 10/28/17 20:30 Nasal Cannula 2.0 Intake and Output 10/28/17 10/28/17 10/29/17 15:00 23:00 07:00 Intake Total 200 ml 1950 ml 1035 ml Output Total 430 ml 560 ml Balance 200 ml 1520 ml 475 ml Exam Free Text/Dictation Constitutional: alert, oriented, No distress Psych: nl mood Head: atraumatic, normocephalic Eyes: PERRL, nl conjunctiva, No icteric ENMT: mucosa pink and moist, nl external ears & nose, nl lips & teeth Neck: jvd, non-tender, supple Respiratory: r M/L lung diminished; L lung clear No congested cough, No labored breathing Cardiovascular: edema, No regular rate and rhythm Gastrointestinal: mod distended, soft, tender, left BRADY drain serosanguinous drainage No rebound or guarding Genitourinary - Male: Left inguinal/scrotal skin min edematous, no discoloration, min tender Musculoskeletal: No joint tenderness Extremities: normal pulses, No calf tenderness Neurological: nl speech, nl strength, No FOUNDER AND CHIEF TECHNICAL OFFICER II-XII intact, No confused, No nl mental status Skin: nl turgor, left inguinal incision min drainage, no colleen-incisional erythema No diaphoresis, No rash or lesions Lymph: nl lymph nodes Results Result Diagram: 10/29/17 0458 10/29/17 0458 AMY GAMBOA NP Oct 29, 2017 10:19
--- NOTE | 2017-10-29 10:52 | PN ---
Date/Time of Note Date/Time of Note DATE: 10/29/17 TIME: 10:47 Assessment/Plan VTE Prophylaxis VTE Prophylaxis Intervention: heparin Lines/Catheters IV C[facility]ter Type (from [facility] Peripheral IV Urinary Cath still in place: No Assessment/Plan Chief Complaint/Hosp Course 52-year-old male with chronic scrotal/inguinal hernia with hugely swollen scrotum for around 20 years, now presenting to the emergency room with sudden onset of excruciating scrotal pain who is noted with large incarcerated left sided scrotal hernia/inguinal hernia with small bowel obstruction. 1.Massive left-sided scrotal hernia/inguinal hernia occupying entire sigmoid colon and cecum causing partial small bowel obstruction and left hydroureteronephrosis. Status: Acute on chronic. -Expert care of surgery team appreciated. Patient is status post Repair of incarcerated hernia, difficult operation on 10/25/2017. Significant reduction in the size of scrotum. -Continue antibiotics with anaerobic coverage (IV Cipro and Flagyl) due to the nature of abdominal surgery with high-risk complications -Diet per surgery -Continue IV fluids and pain meds -Continue to elevate scrotum. 2. CATRINA, likely with left hydroureteronephrosis versus CKD. Renal function stabilizing. -Nephrology following. We will follow-up with recommendations. -Monitor renal function closely and will consider nephrology if indicated. 3. Essential hypertension. Patient also noncompliant with antihypertensives as outpatient. -Continue antihypertensives. 4. Leukocytosis, likely reactive -Cultures negative-Continue cipro+flagylx 2 weeks. 5. Possible homelessness. Patient reported that he lives in his friend's garage. -sort line worker consult requested. 6. Substance abuse/nicotine abuse. Cessation advised. DVT Prophylaxis: Heparin Plan: Follow-up with surgery recommendations. Patient is at high risk for complications secondary to high risk difficult operation. Continue inpatient care. Patient was seen in collaboration with Problems: Subjective 24 Hr Interval Summary Free Text/Dictation Overall,improving gradually. with lesser abdominal pain. tolerates clear diet. Exam/Review of Systems Vital Signs Vitals Vital Signs Date Time Temp Pulse Resp B/P Pulse Ox O2 Delivery O2 Flow Rate FiO2 10/29/17 07:38 98.2 82 18 143/98 91 10/28/17 20:30 Nasal Cannula 2.0 Intake and Output 10/28/17 10/28/17 10/29/17 14:59 22:59 06:59 Intake Total 200 ml 1950 ml 1035 ml Output Total 430 ml 560 ml Balance 200 ml 1520 ml 475 ml Exam General: Well developed,adequately built, somewhat ill looking and disheveled male not in any acute distress . HEENT: Normocephalic, Atraumatic, No laceration or hematoma; Eyes: PEERL, Conjunctiva clear, Anicteric sclera Neck: Supple without any lymphadenopathy, nontender, no JVD, no carotid bruits, trachea midline, no thyromegaly Cardiac: S1, S2 auscultated, regular rhythm and rate, no mumurs or gallop Pulmonary: Normal respiratory effort. Chest clear to auscultation bilaterally, no adventitious breath sounds GI: Abdomen with Abd binder-s/p ventral hernia repair.Softer. Bowel sounds hypoactive. Genitourinary: Status post hernia repair with reduction in size of scrotum. Extremities: No cyanosis, clubbing, or edema. Pulses [2+] bilaterally. Full ROM on all four extremities. No focal weakness appreciated. Neurologic: Lethargic. But alert to person, place, time, and situation. Affect appropriate, intact sensation. Skin: Clean,dry, and intact. No ecchymosis, no rashes, or lesions Results Result Diagram: 10/29/178 10/29/178 Results 24 hrs Laboratory Tests Test 10/29/17 04:58 White Blood Count 7.3 # Red Blood Count 3.75 L Hemoglobin 11.6 L Hematocrit 35.2 L Mean Corpuscular Volume 93.9 Mean Corpuscular Hemoglobin 30.9 Mean Corpuscular Hemoglobin Concent 33.0 Red Cell Distribution Width 12.9 Platelet Count 212 Mean Platelet Volume 10.9 H Neutrophils % 57.7 Lymphocytes % 17.1 Monocytes % 14.4 H Eosinophils % 10.0 H Basophils % 0.4 Nucleated Red Blood Cells % 0.0 Neutrophils # 4.2 Lymphocytes # 1.3 Monocytes # 1.1 H Eosinophils # 0.7 H Basophils # 0.0 Nucleated Red Blood Cells # 0.0 Sodium Level 138 Potassium Level 3.6 Chloride Level 102 Carbon Dioxide Level 28 Anion Gap 12 Blood Urea Nitrogen 27 H Creatinine 1.25 H Glucose Level 98 Calcium Level 9.5 Medications Medications Current Medications Hydralazine HCl 10 mg 10 mg Q4H PRN IV SBP above 160 Last administered on 01:42; Admin Dose 10 MG; Start 10/24/17 at 21:30 Sodium Chloride (NS) 1,000 ml @ 75 mls/hr [id number] IV Last administered on 03:57; Admin Dose 75 MLS/HR; Start 10/25/17 at 09:30 Metoprolol Tartrate (Lopressor) 25 mg DAILY PO Last administered on 10/29/17 09:22; Admin Dose 25 MG; Start 10/25/17 at 09:30 Ondansetron HCl 4 mg 4 mg Q6H PRN IV NAUSEA AND/OR VOMITING; Start 10/26/17 at 00:00 Ciprofloxacin/ Dextrose 200 ml @ 200 mls/hr Q12 IVPB Last administered on 09:22; Admin Dose 200 MLS/HR; Start 10/26/17 at 10:00 Metronidazole (Flagyl 500 Mg (Pmx)) 100 ml @ 100 mls/hr Q8 IVPB Last administered on 10/29/17 06:36; Admin Dose 100 MLS/HR; Start 10/26/17 at 14:00 Famotidine (Pepcid Iv) 20 mg BID IV Last administered on 10/29/17 09:22; Admin Dose 20 MG; Start 10/26/17 at 10:00 Hydromorphone HCl (Dilaudid) 1 mg Q3H PRN IV PAIN 7-10 Last administered on 05:51; Admin Dose 1 MG; Start 10/27/17 at 09:30 Acetaminophen/ Hydrocodone Bitart ([place] (5/325)) 1 tab Q4H PRN PO pain 4-6; Start 10/28/17 at 14:00 Acetaminophen (Tylenol Tab) 650 mg Q6H PRN PO PAIN AND OR ELEVATED TEMP; Start 10/28/17 at 14:00 Ibuprofen (Motrin) 600 mg Q6H PRN PO pain 1-4 Last administered on 10/29/17 09:42; Admin Dose 600 MG; Start 10/28/17 at 14:00 Heparin Sodium (Porcine) (Heparin (5000 Units/0.5 ml)) 5,000 unit BID SC Last administered on 12/11/17at 09:52; Admin Dose 5,000 UNIT; Start 10/29/17 at 09: 30 RICHARD HICKMAN NP Oct 29, 2017 10:52
[2017-10-29 14:12] VITALS: BP 132/90; RESP 18
--- NOTE | 2017-10-29 17:28 | CONS ---
Date/Time of Note Date/Time of Note DATE: 10/29/17 TIME: 17:27 Assessment/Plan Assessment/Plan Additional Assessment/Plan 52-year-old male with 1.Massive left-sided scrotal hernia/inguinal hernia POD #2 2 Partial small bowel obstruction and left hydroureteronephrosis. 3.CATRINA vs CKD 2nd to above. 4.Essential hypertension. 5.Leukocytosis 6.Hypercalcemia- resolved 7. Hypomagnesemia Renal function stable and improved Repeat chemstry in am Cont current Rx and plan Will cont to follow along with you. Thank you fo the opportunity to participate in the care of Mr Poole. Consultation Date/Type/Reason Admit Date/Time Oct 24, 2017 at 19:31 Initial Consult Date 10/25/17 Type of Consultation: Renal Referring Provider: RICHARD HICKMAN NP 24 HR Interval Summary Constitutional: No requiring O2 Exam/Review of Systems Vital Signs Vitals Vital Signs Date Time Temp Pulse Resp B/P Pulse Ox O2 Delivery O2 Flow Rate FiO2 10/29/17 14:12 97.5 74 18 132/90 98 10/28/17 20:30 Nasal Cannula 2.0 Intake and Output 10/28/17 10/28/17 10/29/17 15:00 23:00 07:00 Intake Total 200 ml 1950 ml 1035 ml Output Total 430 ml 560 ml Balance 200 ml 1520 ml 475 ml Exam Constitutional: No distress ENMT: mucosa pink and moist Neck: No jvd Respiratory: clear to auscultation Cardiovascular: regular rate and rhythm, No edema Gastrointestinal: distended, soft, tender, No rebound or guarding Neurological: nl mental status Results Result Diagram: 10/29/17 0458 10/29/17 0458 Results 24 hrs Laboratory Tests Test 10/29/17 04:58 White Blood Count 7.3 # Red Blood Count 3.75 L Hemoglobin 11.6 L Hematocrit 35.2 L Mean Corpuscular Volume 93.9 Mean Corpuscular Hemoglobin 30.9 Mean Corpuscular Hemoglobin Concent 33.0 Red Cell Distribution Width 12.9 Platelet Count 212 Mean Platelet Volume 10.9 H Neutrophils % 57.7 Lymphocytes % 17.1 Monocytes % 14.4 H Eosinophils % 10.0 H Basophils % 0.4 Nucleated Red Blood Cells % 0.0 Neutrophils # 4.2 Lymphocytes # 1.3 Monocytes # 1.1 H Eosinophils # 0.7 H Basophils # 0.0 Nucleated Red Blood Cells # 0.0 Sodium Level 138 Potassium Level 3.6 Chloride Level 102 Carbon Dioxide Level 28 Anion Gap 12 Blood Urea Nitrogen 27 H Creatinine 1.25 H Glucose Level 98 Calcium Level 9.5 Medications Medications Current Medications Hydralazine HCl 10 mg 10 mg Q4H PRN IV SBP above 160 Last administered on 01:42; Admin Dose 10 MG; Start 10/24/17 at 21:30 Sodium Chloride (NS) 1,000 ml @ 75 mls/hr [id number] IV Last administered on 03:57; Admin Dose 75 MLS/HR; Start 10/25/17 at 09:30 Metoprolol Tartrate (Lopressor) 25 mg DAILY PO Last administered on 10/29/17 09:22; Admin Dose 25 MG; Start 10/25/17 at 09:30 Ondansetron HCl 4 mg 4 mg Q6H PRN IV NAUSEA AND/OR VOMITING; Start 10/26/17 at 00:00 Ciprofloxacin/ Dextrose 200 ml @ 200 mls/hr Q12 IVPB Last administered on 09:22; Admin Dose 200 MLS/HR; Start 10/26/17 at 10:00 Metronidazole (Flagyl 500 Mg (Pmx)) 100 ml @ 100 mls/hr Q8 IVPB Last administered on 10/29/17 13:49; Admin Dose 100 MLS/HR; Start 10/26/17 at 14:00 Famotidine (Pepcid Iv) 20 mg BID IV Last administered on 10/29/17 09:22; Admin Dose 20 MG; Start 10/26/17 at 10:00 Hydromorphone HCl (Dilaudid) 1 mg Q3H PRN IV PAIN 7-10 Last administered on 16:03; Admin Dose 1 MG; Start 10/27/17 at 09:30 Acetaminophen/ Hydrocodone Bitart ([place] (5/325)) 1 tab Q4H PRN PO pain 4-6; Start 10/28/17 at 14:00 Acetaminophen (Tylenol Tab) 650 mg Q6H PRN PO PAIN AND OR ELEVATED TEMP; Start 10/28/17 at 14:00 Ibuprofen (Motrin) 600 mg Q6H PRN PO pain 1-4 Last administered on 10/29/17 09:42; Admin Dose 600 MG; Start 10/28/17 at 14:00 Heparin Sodium (Porcine) (Heparin (5000 Units/0.5 ml)) 5,000 unit BID SC Last administered on 10/29/17 09:52; Admin Dose 5,000 UNIT; Start 10/29/17 at 09: 30 DAKOTA HUTCHINSON MD Oct 29, 2017 17:28
[2017-10-29 20:02] VITALS: BP 128/91; RESP 18
[2017-10-30 02:05] VITALS: BP 157/105; RESP 20
[2017-10-30] MEDS: HYDROmorphONE 1 MG/ML SYG IV PRN ×2 (02:09→09:18)
[2017-10-30 03:07] VITALS: BP 144/96; PULSE 76; RESP 20
[2017-10-30] MEDS: metroNIDAZOLE 500 MG/NS (PMX) 100 ML IVPB SCH ×3 (05:20→22:07)
[2017-10-30 06:01] LABS: BASOPHILS % 0.4 % (0.0-2.0); EOSINOPHILS # 0.6 10^3/ul (0.0-0.5); EOSINOPHILS % 9.1 % (0.0-7.0); HEMATOCRIT 34.3 % (42.0-52.0); HEMOGLOBIN 11.2 g/dl (14.0-18.0); LYMPHOCYTES # 1.1 10^3/ul (0.8-2.9); LYMPHOCYTES % 16.7 % (15.0-51.0); MEAN CORPUSCULAR HEMOGLOBIN 30.7 pg (29.0-33.0); MEAN CORPUSCULAR HGB CONC 32.7 g/dl (32.0-37.0); MEAN PLATELET VOLUME 10.6 fl (7.4-10.4); MONOCYTE # 0.9 10^3/ul (0.3-0.9); MONOCYTES % 13.3 % (0.0-11.0); NEUTROPHILS % 60.1 % (39.0-77.0); PLATELET COUNT 195 10^3/UL (140-415); RED BLOOD COUNT 3.65 10^6/ul (4.70-6.10); WHITE BLOOD COUNT 6.7 10^3/ul (4.8-10.8)
[2017-10-30 06:28] LABS: CALCIUM 9.3 mg/dl (8.4-10.2); CREATININE 1.12 mg/dl (0.61-1.24); POTASSIUM 4.3 mmol/L (3.5-5.1)
[2017-10-30 07:36] VITALS: BP 143/97; RESP 18
--- NOTE | 2017-10-30 09:16 | PN ---
Date/Time of Note Date/Time of Note DATE: 10/30/17 TIME: 09:12 Assessment/Plan VTE Prophylaxis VTE Prophylaxis Intervention: heparin Lines/Catheters IV Catheter Type (from [facility]): Peripheral IV Urinary Cath still in place: No Assessment/Plan Chief Complaint/Hosp Course 52-year-old male with chronic scrotal/inguinal hernia with hugely swollen scrotum for around 20 years, now presenting to the emergency room with sudden onset of excruciating scrotal pain who is noted with large incarcerated left sided scrotal hernia/inguinal hernia with small bowel obstruction. 1.Massive left-sided scrotal hernia/inguinal hernia occupying entire sigmoid colon and cecum causing partial small bowel obstruction and left hydroureteronephrosis. Status: Acute on chronic. -Expert care of surgery team appreciated. Patient is status post Repair of incarcerated hernia, difficult operation on 10/25/2017. Significant reduction in the size of scrotum. -Continue antibiotics with anaerobic coverage (IV Cipro and Flagyl) due to the nature of abdominal surgery with high-risk complications -Diet per surgery -Continue IV fluids and pain meds -Continue to elevate scrotum. 2. CATRINA, likely with left hydroureteronephrosis versus CKD. Renal function stabilized -Nephrology following. We will follow-up with recommendations. -Monitor renal function closely and will consider nephrology if indicated. 3. Essential hypertension. Patient also noncompliant with antihypertensives as outpatient. -Continue antihypertensives. 4. Leukocytosis, likely reactive. Resolved. -Cultures negative-Continue cipro+flagylx 2 weeks. 5. Possible homelessness. Patient reported that he lives in his friend's garage. -tie up worker consult requested. 6. Substance abuse/nicotine abuse. Cessation advised. DVT Prophylaxis: Heparin Plan: Patient had very difficult operation with high risk postoperative complication. Fortunately, patient with excellent postoperative progress. Encourage ambulation and incentive spirometry. Diet advancement per surgery. . Patient was seen in collaboration with Problems: Subjective 24 Hr Interval Summary Free Text/Dictation Patient is doing well clinically. He passed flatus and had bowel movement. He is feeling hungry and wanted to advance diet. Exam/Review of Systems Vital Signs Vitals Vital Signs Date Time Temp Pulse Resp B/P Pulse Ox O2 Delivery O2 Flow Rate FiO2 10/30/17 07:36 98.1 94 18 143/97 89 10/28/17 20:30 Nasal Cannula 2.0 Intake and Output 10/29/17 10/29/17 10/30/17 14:59 22:59 06:59 Intake Total 500 ml 2390 ml 1130 ml Output Total 25 ml 590 ml 520 ml Balance 475 ml 1800 ml 610 ml Exam General: Well developed,adequately built, not in any acute distress . HEENT: Normocephalic, Atraumatic, No laceration or hematoma; Eyes: PEERL, Conjunctiva clear, Anicteric sclera Neck: Supple without any lymphadenopathy, nontender, no JVD, no carotid bruits, trachea midline, no thyromegaly Cardiac: S1, S2 auscultated, regular rhythm and rate, no mumurs or gallop Pulmonary: Normal respiratory effort. Chest clear to auscultation bilaterally, no adventitious breath sounds GI: Abdomen with Abd binder-s/p ventral hernia repair. Abdomen softer. Bowel sounds active. No tenderness. Genitourinary: Status post hernia repair with reduction in size of scrotum. Extremities: No cyanosis, clubbing, or edema. Pulses [2+] bilaterally. Full ROM on all four extremities. No focal weakness appreciated. Neurologic:Alert to person, place, time, and situation. Affect appropriate, intact sensation. Skin: Clean,dry, and intact. No ecchymosis, no rashes, or lesions Results Result Diagram: 10/30/1752710/30/17527 Results 24 hrs Laboratory Tests Test 10/30/17 05:28 White Blood Count 6.7 Red Blood Count 3.65 L Hemoglobin 11.2 L Hematocrit 34.3 L Mean Corpuscular Volume 94.0 Mean Corpuscular Hemoglobin 30.7 Mean Corpuscular Hemoglobin Concent 32.7 Red Cell Distribution Width 13.0 Platelet Count 195 Mean Platelet Volume 10.6 H Neutrophils % 60.1 Lymphocytes % 16.7 Monocytes % 13.3 H Eosinophils % 9.1 H Basophils % 0.4 Nucleated Red Blood Cells % 0.0 Neutrophils # 4.0 Lymphocytes # 1.1 Monocytes # 0.9 Eosinophils # 0.6 H Basophils # 0.0 Nucleated Red Blood Cells # 0.0 Sodium Level 137 Potassium Level 4.3 Chloride Level 103 Carbon Dioxide Level 29 Anion Gap 9 Blood Urea Nitrogen 21 H Creatinine 1.12 Glucose Level 96 Calcium Level 9.3 Medications Medications Current Medications Hydralazine HCl 10 mg 10 mg Q4H PRN IV SBP above 160 Last administered on 01:42; Admin Dose 10 MG; Start 10/24/17 at 21:30 Sodium Chloride (NS) 1,000 ml @ 75 mls/hr [id number] IV Last administered on 20:19; Admin Dose 75 MLS/HR; Start 10/25/17 at 09:30 Metoprolol Tartrate (Lopressor) 25 mg DAILY PO Last administered on 10/29/17 09:22; Admin Dose 25 MG; Start 10/25/17 at 09:30 Ondansetron HCl 4 mg 4 mg Q6H PRN IV NAUSEA AND/OR VOMITING; Start 10/26/17 at 00:00 Ciprofloxacin/ Dextrose 200 ml @ 200 mls/hr Q12 IVPB Last administered on 20:18; Admin Dose 200 MLS/HR; Start 10/26/17 at 10:00 Metronidazole (Flagyl 500 Mg (Pmx)) 100 ml @ 100 mls/hr Q8 IVPB Last administered on 10/30/17 05:20; Admin Dose 100 MLS/HR; Start 10/26/17 at 14:00 Famotidine (Pepcid Iv) 20 mg BID IV Last administered on 10/29/17 20:19; Admin Dose 20 MG; Start 10/26/17 at 10:00 Hydromorphone HCl (Dilaudid) 1 mg Q3H PRN IV PAIN 7-10 Last administered on 02:09; Admin Dose 1 MG; Start 10/27/17 at 09:30 Acetaminophen/ Hydrocodone Bitart ([place] (5/325)) 1 tab Q4H PRN PO pain 4-6; Start 10/28/17 at 14:00 Acetaminophen (Tylenol Tab) 650 mg Q6H PRN PO PAIN AND OR ELEVATED TEMP; Start 10/28/17 at 14:00 Ibuprofen (Motrin) 600 mg Q6H PRN PO pain 1-4 Last administered on 10/29/17 09:42; Admin Dose 600 MG; Start 10/28/17 at 14:00 Heparin Sodium (Porcine) (Heparin (5000 Units/0.5 ml)) 5,000 unit BID SC Last administered on 12/11/17at 20:15; Admin Dose 5,000 UNIT; Start 10/29/17 at 09: 30 RICHARD HICKMAN NP Oct 30, 2017 09:15
[2017-10-30] MEDS: SOD CHLORIDE 0.9% 1,000 ML IV SCH ×3 (09:30→22:18)
[2017-10-30] MEDS: CIPROFLOXACIN 400MG/D5W 200 ML IVPB SCH ×2 (09:50→20:26)
[2017-10-30] MEDS: FAMOTIDINE 20 MG INJ IV SCH ×2 (09:50→20:26)
[2017-10-30] MEDS: METOPROLOL 25 MG TAB PO SCH (09:51)
[2017-10-30] MEDS: HEPARIN 5,000 UNIT/0.5 ML VIAL SC SCH ×2 (10:05→20:39)
[2017-10-30] MEDS: HYDROCODONE/APAP (5/325) TAB PO PRN ×2 (13:19→20:25)
[2017-10-30 13:53] VITALS: BP 126/84; RESP 18
[2017-10-30] MEDS ORDERED: HYDROmorphONE 2 MG TAB PO PRN (17:30)
[2017-10-30 19:53] VITALS: BP 147/103; RESP 20
--- NOTE | 2017-10-30 20:44 | CONS ---
Date/Time of Note Date/Time of Note DATE: 10/30/17 TIME: 20:43 Assessment/Plan Assessment/Plan Additional Assessment/Plan 52-year-old male with 1.Massive left-sided scrotal hernia/inguinal hernia POD #2 2 Partial small bowel obstruction and left hydroureteronephrosis. 3.CATRINA vs CKD 2nd to above. 4.Essential hypertension. 5.Leukocytosis 6.Hypercalcemia- resolved 7. Hypomagnesemia Cont current Rx and plan Renal function stable and improved Repeat chemstry in am Will cont to follow along with you. Thank you fo the opportunity to participate in the care of Mr Poole. Consultation Date/Type/Reason Admit Date/Time Oct 24, 2017 at 19:31 Initial Consult Date 10/25/17 Type of Consultation: Renal Referring Provider: RICHARD HICKMAN NP 24 HR Interval Summary Free Text/Dictation No new complaints Constitutional: No requiring O2 Exam/Review of Systems Vital Signs Vitals Vital Signs Date Time Temp Pulse Resp B/P Pulse Ox O2 Delivery O2 Flow Rate FiO2 10/30/17 19:53 98.6 91 20 147/103 96 10/28/17 20:30 Nasal Cannula 2.0 Intake and Output 10/29/17 10/29/17 10/30/17 15:00 23:00 07:00 Intake Total 500 ml 2490 ml 1030 ml Output Total 25 ml 590 ml 520 ml Balance 475 ml 1900 ml 510 ml Exam Constitutional: No distress ENMT: mucosa pink and moist Neck: No jvd Respiratory: clear to auscultation Cardiovascular: regular rate and rhythm, No edema Gastrointestinal: distended, soft Neurological: CHIEF PORT DIRECTOR II-XII intact, nl mental status Results Result Diagram: 10/30/1728 10/30/17527 Results 24 hrs Laboratory Tests Test 10/30/17 05:28 White Blood Count 6.7 Red Blood Count 3.65 L Hemoglobin 11.2 L Hematocrit 34.3 L Mean Corpuscular Volume 94.0 Mean Corpuscular Hemoglobin 30.7 Mean Corpuscular Hemoglobin Concent 32.7 Red Cell Distribution Width 13.0 Platelet Count 195 Mean Platelet Volume 10.6 H Neutrophils % 60.1 Lymphocytes % 16.7 Monocytes % 13.3 H Eosinophils % 9.1 H Basophils % 0.4 Nucleated Red Blood Cells % 0.0 Neutrophils # 4.0 Lymphocytes # 1.1 Monocytes # 0.9 Eosinophils # 0.6 H Basophils # 0.0 Nucleated Red Blood Cells # 0.0 Sodium Level 137 Potassium Level 4.3 Chloride Level 103 Carbon Dioxide Level 29 Anion Gap 9 Blood Urea Nitrogen 21 H Creatinine 1.12 Glucose Level 96 Calcium Level 9.3 Medications Medications Current Medications Hydralazine HCl 10 mg 10 mg Q4H PRN IV SBP above 160 Last administered on 01:42; Admin Dose 10 MG; Start 10/24/17 at 21:30 Sodium Chloride (NS) 1,000 ml @ 75 mls/hr [id number] IV Last administered on 16:55; Admin Dose 75 MLS/HR; Start 10/25/17 at 09:30 Metoprolol Tartrate (Lopressor) 25 mg DAILY PO Last administered on 10/30/17 09:51; Admin Dose 25 MG; Start 10/25/17 at 09:30 Ondansetron HCl 4 mg 4 mg Q6H PRN IV NAUSEA AND/OR VOMITING; Start 10/26/17 at 00:00 Ciprofloxacin/ Dextrose 200 ml @ 200 mls/hr Q12 IVPB Last administered on 20:26; Admin Dose 200 MLS/HR; Start 10/26/17 at 10:00 Metronidazole (Flagyl 500 Mg (Pmx)) 100 ml @ 100 mls/hr Q8 IVPB Last administered on 10/30/17 14:21; Admin Dose 100 MLS/HR; Start 10/26/17 at 14:00 Famotidine (Pepcid Iv) 20 mg BID IV Last administered on 10/30/17 20:26; Admin Dose 20 MG; Start 10/26/17 at 10:00 Acetaminophen/ Hydrocodone Bitart ([place] (5/325)) 1 tab Q4H PRN PO pain 4-6 Last administered on 10/30/17 20:25; Admin Dose 1 TAB; Start 10/28/17 at 14: 00 Acetaminophen (Tylenol Tab) 650 mg Q6H PRN PO PAIN AND OR ELEVATED TEMP; Start 10/28/17 at 14:00 Ibuprofen (Motrin) 600 mg Q6H PRN PO pain 1-4 Last administered on 10/29/17 09:42; Admin Dose 600 MG; Start 10/28/17 at 14:00 Heparin Sodium (Porcine) (Heparin (5000 Units/0.5 ml)) 5,000 unit BID SC Last administered on 10/30/17 20:39; Admin Dose 5,000 UNIT; Start 10/29/17 at 09: 30 Hydromorphone HCl (Dilaudid) 4 mg Q3H PRN PO PAIN LEVEL 7-10 Last administered on 10/30/17 18:47; Admin Dose 4 MG; Start 10/30/17 at 17:30 DAKOTA HUTHCINSON MD Oct 30, 2017 20:44
--- NOTE | 2017-10-30 22:15 | PN ---
Date/Time of Note Date/Time of Note DATE: 10/30/17 TIME: 22:15 Assessment/Plan Lines/Catheters IV Catheter Type (from Nrs): Peripheral IV Aguirre in Place (from Nrs): No Assessment/Plan Chief Complaint/Hosp Course 1. Very large chronic (20 years) left inguinal hernia: s/p hernia repair 10/25 -elevate when in bed -scrotal support -IS-educated on importance; encourage use -ice pack -brady drain care -pain management-attempt non narcotics first to reduce chance of decreased gastric motility -abd binder -ambulate -PT eval & treat 2. SBO, possible partial secondary to above; +bowel function; sbft noted without obstruction -full liquids 3. Leukocytosis: afebrile; normalized -cont abx 4. Anemia -Monitor 5. Smoker -Highly encouraged cessation 6. CATRINA vs. CKD with left hydroureteronephrosis 2/2 kinking from #1; cr up +uop -Judicious fluid management -Avoid nephrotoxic agents -per renal 7. Hypertension -Diet and medication optimization encouraged 8. Debility: -PT; encourage ambulation Thank you. Patient seen and examined in collaboration with Dr. Trell Guo. Problems: Subjective 24 Hr Interval Summary Tolerating clears. Continues to have bowel function. Continues to have abdominal tenderness. No fevers, chills, sob, congested cough, cp, palpitations , doll, dizziness, n/v/d/dysuria. Exam/Review of Systems Vital Signs Vitals Vital Signs Date Time Temp Pulse Resp B/P Pulse Ox O2 Delivery O2 Flow Rate FiO2 10/31/17 07:28 98.7 75 20 146/100 95 10/30/17 20:00 Nasal Cannula 2.0 Intake and Output 10/30/17 10/30/17 10/31/17 14:59 22:59 06:59 Intake Total 200 ml 1290 ml 720 ml Output Total 310 ml 400 ml Balance 200 ml 980 ml 320 ml Exam Free Text/Dictation Constitutional: alert, oriented, No distress Psych: nl mood Head: atraumatic, normocephalic Eyes: PERRL, nl conjunctiva, No icteric ENMT: mucosa pink and moist, nl external ears & nose, nl lips & teeth Neck: jvd, non-tender, supple Respiratory: r M/L lung diminished; L lung clear No congested cough, No labored breathing Cardiovascular: edema, No regular rate and rhythm Gastrointestinal: mod distended, soft, tender, left BRADY drain serosanguinous drainage No rebound or guarding Genitourinary - Male: Left inguinal/scrotal skin min edematous, no discoloration, min tender Musculoskeletal: No joint tenderness Extremities: normal pulses, No calf tenderness Neurological: nl speech, nl strength, No AIRCRAFT CLEANER II-XII intact, No confused, No nl mental status Skin: nl turgor, left inguinal incision min drainage, no colleen-incisional erythema No diaphoresis, No rash or lesions Lymph: nl lymph nodes Results Result Diagram: 10/31/17 0519 10/31/17 0519 AMY GAMBOA NP Oct 30, 2017 22:15
[2017-10-31] MEDS: HYDROCODONE/APAP (5/325) TAB PO PRN ×5 (02:23→21:52)
[2017-10-31 02:24] VITALS: BP 136/95
[2017-10-31 02:29] VITALS: BP 141/103; RESP 18
[2017-10-31] MEDS: metroNIDAZOLE 500 MG/NS (PMX) 100 ML IVPB SCH ×3 (05:26→23:24)
[2017-10-31 05:55] LABS: BASOPHILS % 0.3 % (0.0-2.0); EOSINOPHILS # 0.6 10^3/ul (0.0-0.5); EOSINOPHILS % 8.2 % (0.0-7.0); HEMATOCRIT 32.6 % (42.0-52.0); HEMOGLOBIN 10.8 g/dl (14.0-18.0); LYMPHOCYTES # 1.2 10^3/ul (0.8-2.9); LYMPHOCYTES % 15.2 % (15.0-51.0); MEAN CORPUSCULAR HEMOGLOBIN 30.9 pg (29.0-33.0); MEAN CORPUSCULAR HGB CONC 33.1 g/dl (32.0-37.0); MEAN CORPUSCULAR VOLUME 93.1 fl (82.0-101.0); MEAN PLATELET VOLUME 10.5 fl (7.4-10.4); MONOCYTE # 0.9 10^3/ul (0.3-0.9); MONOCYTES % 11.6 % (0.0-11.0); NEUTROPHIL # 4.9 10^3/ul (1.6-7.5); PLATELET COUNT 200 10^3/UL (140-415); RED CELL DISTRIBUTION WIDTH 12.8 % (11.5-14.5); WHITE BLOOD COUNT 7.6 10^3/ul (4.8-10.8)
[2017-10-31 06:56] LABS: CALCIUM 9.5 mg/dl (8.4-10.2); CREATININE 1.04 mg/dl (0.61-1.24); POTASSIUM 3.8 mmol/L (3.5-5.1)
[2017-10-31 07:28] VITALS: BP 146/100; RESP 20
[2017-10-31] MEDS: FAMOTIDINE 20 MG INJ IV SCH ×2 (08:47→21:52)
[2017-10-31] MEDS: CIPROFLOXACIN 400MG/D5W 200 ML IVPB SCH ×2 (08:47→21:55)
[2017-10-31] MEDS: METOPROLOL 25 MG TAB PO SCH ×2 (08:48→21:54)
[2017-10-31] MEDS: HEPARIN 5,000 UNIT/0.5 ML VIAL SC SCH ×2 (08:49→21:56)
--- NOTE | 2017-10-31 09:34 | PN ---
Date/Time of Note Date/Time of Note DATE: 10/31/17 TIME: 09:28 Assessment/Plan VTE Prophylaxis VTE Prophylaxis Intervention: ambulation, heparin Lines/Catheters IV Catheter Type (from [facility]): Peripheral IV Urinary Cath still in place: No Assessment/Plan Chief Complaint/Hosp Course 52-year-old male with chronic scrotal/inguinal hernia with hugely swollen scrotum for around 20 years, now presenting to the emergency room with sudden onset of excruciating scrotal pain who is noted with large incarcerated left sided scrotal hernia/inguinal hernia with small bowel obstruction. 1.Massive left-sided scrotal hernia/inguinal hernia occupying entire sigmoid colon and cecum causing partial small bowel obstruction and left hydroureteronephrosis. Status: Acute on chronic. -Expert care of surgery team appreciated. Patient is status post Repair of incarcerated hernia, difficult operation on 10/25/2017. Significant reduction in the size of scrotum. -Continue antibiotics with anaerobic coverage (IV Cipro and FlagylX 7DAYS) due to the nature of abdominal surgery with high-risk complications -Diet per surgery -De-escalate pain medications down to [place]. -Ambulate in unit. -Continue to elevate scrotum. 2. CATRINA, likely with left hydroureteronephrosis versus CKD. Resolved. -Nephrology evaluation appreciated. We will continue to monitor renal function. 3. Essential hypertension. Patient also noncompliant with antihypertensives as outpatient. -Uptitrate metoprolol to 25 mg twice daily. 4. Leukocytosis, likely reactive. Resolved. -Cultures negative-patient received total of 6 days on Cipro and Flagyl. We will continue for 1 more day and will stop. 5. Possible homelessness. Patient reported that he lives in his friend's garage. -fat purification worker consult requested. 6. Substance abuse/nicotine abuse. Cessation advised. DVT Prophylaxis: Heparin Plan: Patient had very difficult operation with high risk postoperative complication. Fortunately, patient with excellent postoperative progress. De- escalate pain medications. Discontinue antibiotics soon. Encourage ambulation and incentive spirometry. Diet advancement per surgery. Patient was seen in collaboration with Problems: Subjective 24 Hr Interval Summary Free Text/Dictation Patient with overall improvement. Pain is improved. Patient had bowel movement. Started on full liquids and tolerates. He has been ambulated in the unit. Exam/Review of Systems Vital Signs Vitals Vital Signs Date Time Temp Pulse Resp B/P Pulse Ox O2 Delivery O2 Flow Rate FiO2 10/31/17 07:28 98.7 75 20 146/100 95 10/30/17 20:00 Nasal Cannula 2.0 Intake and Output 10/30/17 10/30/17 10/31/17 15:00 23:00 07:00 Intake Total 200 ml 1390 ml 620 ml Output Total 310 ml 400 ml Balance 200 ml 1080 ml 220 ml Exam General: Well developed,adequately built, not in any acute distress . HEENT: Normocephalic, Atraumatic, No laceration or hematoma; Eyes: PEERL, Conjunctiva clear, Anicteric sclera Neck: Supple without any lymphadenopathy, nontender, no JVD, no carotid bruits, trachea midline, no thyromegaly Cardiac: S1, S2 auscultated, regular rhythm and rate, no mumurs or gallop Pulmonary: Normal respiratory effort. Chest clear to auscultation bilaterally, no adventitious breath sounds GI: Abdomen with Abd binder-s/p ventral hernia repair. Abdomen softer. Bowel sounds active. No tenderness. Genitourinary: Status post hernia repair with reduction in size of scrotum. Extremities: No cyanosis, clubbing, or edema. Pulses [2+] bilaterally. Full ROM on all four extremities. No focal weakness appreciated. Neurologic:Alert to person, place, time, and situation. Affect appropriate, intact sensation. Skin: Clean,dry, and intact. No ecchymosis, no rashes, or lesions Results Result Diagram: 10/31/17 0519 10/31/17 0519 Results 24 hrs Laboratory Tests Test 10/31/17 05:19 White Blood Count 7.6 Red Blood Count 3.50 L Hemoglobin 10.8 L Hematocrit 32.6 L Mean Corpuscular Volume 93.1 Mean Corpuscular Hemoglobin 30.9 Mean Corpuscular Hemoglobin Concent 33.1 Red Cell Distribution Width 12.8 Platelet Count 200 Mean Platelet Volume 10.5 H Neutrophils % 64.0 Lymphocytes % 15.2 Monocytes % 11.6 H Eosinophils % 8.2 H Basophils % 0.3 Nucleated Red Blood Cells % 0.0 Neutrophils # 4.9 Lymphocytes # 1.2 Monocytes # 0.9 Eosinophils # 0.6 H Basophils # 0.0 Nucleated Red Blood Cells # 0.0 Sodium Level 139 Potassium Level 3.8 Chloride Level 103 Carbon Dioxide Level 28 Anion Gap 12 Blood Urea Nitrogen 14 Creatinine 1.04 Glucose Level 103 Calcium Level 9.5 Medications Medications Current Medications Hydralazine HCl 10 mg 10 mg Q4H PRN IV SBP above 160 Last administered on 01:42; Admin Dose 10 MG; Start 10/24/17 at 21:30 Sodium Chloride (NS) 1,000 ml @ 75 mls/hr [id number] IV Last administered on 16:55; Admin Dose 75 MLS/HR; Start 10/25/17 at 09:30 Metoprolol Tartrate (Lopressor) 25 mg DAILY PO Last administered on 10/31/17 08:48; Admin Dose 25 MG; Start 10/25/17 at 09:30 Ondansetron HCl 4 mg 4 mg Q6H PRN IV NAUSEA AND/OR VOMITING; Start 10/26/17 at 00:00 Ciprofloxacin/ Dextrose 200 ml @ 200 mls/hr Q12 IVPB Last administered on 08:47; Admin Dose 200 MLS/HR; Start 10/26/17 at 10:00 Metronidazole (Flagyl 500 Mg (Pmx)) 100 ml @ 100 mls/hr Q8 IVPB Last administered on 10/31/17 05:26; Admin Dose 100 MLS/HR; Start 10/26/17 at 14:00 Famotidine (Pepcid Iv) 20 mg BID IV Last administered on 10/31/17 08:47; Admin Dose 20 MG; Start 10/26/17 at 10:00 Acetaminophen/ Hydrocodone Bitart ([place] (5/325)) 1 tab Q4H PRN PO pain 4-6 Last administered on 10/31/17 06:52; Admin Dose 1 TAB; Start 10/28/17 at 14: 00 Acetaminophen (Tylenol Tab) 650 mg Q6H PRN PO PAIN AND OR ELEVATED TEMP; Start 10/28/17 at 14:00 Ibuprofen (Motrin) 600 mg Q6H PRN PO pain 1-4 Last administered on 10/29/17 09:42; Admin Dose 600 MG; Start 10/28/17 at 14:00 Heparin Sodium (Porcine) (Heparin (5000 Units/0.5 ml)) 5,000 unit BID SC Last administered on 10/31/17t 08:49; Admin Dose 5,000 UNIT; Start 10/29/17 at 09: 30 RICHARD HICKMAN NP Oct 31, 2017 09:34
--- NOTE | 2017-10-31 11:23 | PN ---
Date/Time of Note Date/Time of Note DATE: 10/31/17 TIME: 11:09 Assessment/Plan Lines/Catheters IV Catheter Type (from Nrs): Peripheral IV Aguirre in Place (from Nrs): No Assessment/Plan Chief Complaint/Hosp Course 1. Very large chronic (20 years) left inguinal hernia: s/p hernia repair 10/25 -elevate scrotum when in bed w rolled towel -scrotal support -IS-educated on importance; encourage use -ice pack -brady drain care -pain management-attempt non narcotics first to reduce chance of decreased gastric motility -abd binder -ambulate -PT eval & treat -soft diet -dc planning with homehealth for drain care 2. SBO, possible partial secondary to above; +bowel function; sbft noted without obstruction -soft diet 3. Debility: -PT; encourage ambulation 4. Anemia -Monitor 5. Smoker -Highly encouraged cessation 6. CATRINA vs. CKD with left hydroureteronephrosis 2/2 kinking from #1; cr nl -Judicious fluid management -Avoid nephrotoxic agents -per renal 7. Hypertension -Diet and medication optimization encouraged Thank you. Patient seen and examined in collaboration with Dr. Trell Guo. Problems: Subjective 24 Hr Interval Summary Feels well. +bowel function. Increasing in level of activity. Tolerating full liquid diet. Improved abdominal tenderness. No fevers, chills, sob, congested cough, cp, palpitations, doll, dizziness, n/v/d/dysuria. Exam/Review of Systems Vital Signs Vitals Vital Signs Date Time Temp Pulse Resp B/P Pulse Ox O2 Delivery O2 Flow Rate FiO2 10/31/17 07:28 98.7 75 20 146/100 95 10/30/17 20:00 Nasal Cannula 2.0 Intake and Output 10/30/17 10/30/17 10/31/17 14:59 22:59 06:59 Intake Total 200 ml 1290 ml 720 ml Output Total 310 ml 400 ml Balance 200 ml 980 ml 320 ml Exam Free Text/Dictation Constitutional: alert, oriented, No distress Psych: nl mood Head: atraumatic, normocephalic Eyes: PERRL, nl conjunctiva, No icteric ENMT: mucosa pink and moist, nl external ears & nose, nl lips & teeth Neck: jvd, non-tender, supple Respiratory: r M/L lung diminished; L lung clear No congested cough, No labored breathing Cardiovascular: edema, No regular rate and rhythm Gastrointestinal: mod distended, soft, tender, left BRADY drain serosanguinous drainage No rebound or guarding Genitourinary - Male: Left inguinal/scrotal skin min edematous, no discoloration, min tender Musculoskeletal: No joint tenderness Extremities: normal pulses, No calf tenderness Neurological: nl speech, nl strength, No PRINTING SUPERVISOR II-XII intact, No confused, No nl mental status Skin: nl turgor, left inguinal incision min drainage, no colleen-incisional erythema No diaphoresis, No rash or lesions Lymph: nl lymph nodes Results Result Diagram: 10/31/17 0519 10/31/17 0519 AMY GAMBOA NP Oct 31, 2017 11:21
[2017-10-31] MEDS: SOD CHLORIDE 0.9% 1,000 ML IV SCH (12:31)
[2017-10-31 13:43] VITALS: BP 148/98; RESP 20
--- NOTE | 2017-10-31 17:20 | CONS ---
Date/Time of Note Date/Time of Note DATE: 10/31/17 TIME: 17:19 Assessment/Plan Assessment/Plan Additional Assessment/Plan 52-year-old male with 1.Massive left-sided scrotal hernia/inguinal hernia POD #2 2 Partial small bowel obstruction and left hydroureteronephrosis. 3.CATRINA vs CKD 2nd to above. 4.Essential hypertension. 5.Leukocytosis 6.Hypercalcemia- resolved 7. Hypomagnesemia Cont current Rx and plan Renal function stable and improved Repeat chemstry in am Will cont to follow along with you. Thank you fo the opportunity to participate in the care of Mr Poole. Consultation Date/Type/Reason Admit Date/Time Oct 24, 2017 at 19:31 Initial Consult Date 10/25/17 Type of Consultation: Renal Referring Provider: RICHARD HICKMAN NP 24 HR Interval Summary Constitutional: No requiring O2 Exam/Review of Systems Vital Signs Vitals Vital Signs Date Time Temp Pulse Resp B/P Pulse Ox O2 Delivery O2 Flow Rate FiO2 10/31/17 13:43 98.0 72 20 148/98 91 10/30/17 20:00 Nasal Cannula 2.0 Intake and Output 10/30/17 10/30/17 10/31/17 15:00 23:00 07:00 Intake Total 200 ml 1390 ml 620 ml Output Total 310 ml 400 ml Balance 200 ml 1080 ml 220 ml Results Result Diagram: 10/31/17 0519 10/31/17 0519 Results 24 hrs Laboratory Tests Test 10/31/17 05:19 White Blood Count 7.6 Red Blood Count 3.50 L Hemoglobin 10.8 L Hematocrit 32.6 L Mean Corpuscular Volume 93.1 Mean Corpuscular Hemoglobin 30.9 Mean Corpuscular Hemoglobin Concent 33.1 Red Cell Distribution Width 12.8 Platelet Count 200 Mean Platelet Volume 10.5 H Neutrophils % 64.0 Lymphocytes % 15.2 Monocytes % 11.6 H Eosinophils % 8.2 H Basophils % 0.3 Nucleated Red Blood Cells % 0.0 Neutrophils # 4.9 Lymphocytes # 1.2 Monocytes # 0.9 Eosinophils # 0.6 H Basophils # 0.0 Nucleated Red Blood Cells # 0.0 Sodium Level 139 Potassium Level 3.8 Chloride Level 103 Carbon Dioxide Level 28 Anion Gap 12 Blood Urea Nitrogen 14 Creatinine 1.04 Glucose Level 103 Calcium Level 9.5 Medications Medications Current Medications Hydralazine HCl 10 mg 10 mg Q4H PRN IV SBP above 160 Last administered on 01:42; Admin Dose 10 MG; Start 10/24/17 at 21:30 Sodium Chloride (NS) 1,000 ml @ 75 mls/hr [id number] IV Last administered on 12:31; Admin Dose 75 MLS/HR; Start 10/25/17 at 09:30 Ondansetron HCl 4 mg 4 mg Q6H PRN IV NAUSEA AND/OR VOMITING; Start 10/26/17 at 00:00 Ciprofloxacin/ Dextrose 200 ml @ 200 mls/hr Q12 IVPB Last administered on 08:47; Admin Dose 200 MLS/HR; Start 10/26/17 at 10:00 Metronidazole (Flagyl 500 Mg (Pmx)) 100 ml @ 100 mls/hr Q8 IVPB Last administered on 10/31/17 15:08; Admin Dose 100 MLS/HR; Start 10/26/17 at 14:00 Famotidine (Pepcid Iv) 20 mg BID IV Last administered on 10/31/17 08:47; Admin Dose 20 MG; Start 10/26/17 at 10:00 Acetaminophen/ Hydrocodone Bitart ([place] (5/325)) 1 tab Q4H PRN PO pain 4-6 Last administered on 10/31/17 17:02; Admin Dose 1 TAB; Start 10/28/17 at 14: 00 Acetaminophen (Tylenol Tab) 650 mg Q6H PRN PO PAIN AND OR ELEVATED TEMP; Start 10/28/17 at 14:00 Ibuprofen (Motrin) 600 mg Q6H PRN PO pain 1-4 Last administered on 10/29/17 09:42; Admin Dose 600 MG; Start 10/28/17 at 14:00 Heparin Sodium (Porcine) (Heparin (5000 Units/0.5 ml)) 5,000 unit BID SC Last administered on 10/31/17 08:49; Admin Dose 5,000 UNIT; Start 10/29/17 at 09: 30 Metoprolol Tartrate (Lopressor) 25 mg BID PO ; Start 10/31/17 at 21:00 DAKOTA HUTCHINSON MD Oct 31, 2017 17:20
[2017-10-31 20:00] VITALS: BP 152/83; RESP 20
[2017-11-01] MEDS: SOD CHLORIDE 0.9% 1,000 ML IV SCH ×3 (01:30→14:50)
[2017-11-01 02:00] VITALS: BP 134/91; RESP 20
[2017-11-01 05:53] LABS: BASOPHILS % 0.4 % (0.0-2.0); EOSINOPHILS # 0.8 10^3/ul (0.0-0.5); EOSINOPHILS % 8.1 % (0.0-7.0); HEMATOCRIT 32.5 % (42.0-52.0); HEMOGLOBIN 11.1 g/dl (14.0-18.0); LYMPHOCYTES # 1.4 10^3/ul (0.8-2.9); LYMPHOCYTES % 13.7 % (15.0-51.0); MEAN CORPUSCULAR HEMOGLOBIN 31.5 pg (29.0-33.0); MEAN CORPUSCULAR HGB CONC 34.2 g/dl (32.0-37.0); MEAN CORPUSCULAR VOLUME 92.3 fl (82.0-101.0); MEAN PLATELET VOLUME 10.2 fl (7.4-10.4); NEUTROPHIL # 6.7 10^3/ul (1.6-7.5); NEUTROPHILS % 67.2 % (39.0-77.0); PLATELET COUNT 232 10^3/UL (140-415); RED BLOOD COUNT 3.52 10^6/ul (4.70-6.10); RED CELL DISTRIBUTION WIDTH 12.7 % (11.5-14.5); WHITE BLOOD COUNT 9.9 10^3/ul (4.8-10.8)
[2017-11-01] MEDS: metroNIDAZOLE 500 MG/NS (PMX) 100 ML IVPB SCH ×3 (06:07→22:00)
[2017-11-01 06:25] LABS: POTASSIUM 3.5 mmol/L (3.5-5.1)
[2017-11-01 08:00] VITALS: BP 156/106; RESP 20
[2017-11-01] MEDS: CIPROFLOXACIN 400MG/D5W 200 ML IVPB SCH ×2 (09:21→21:00)
[2017-11-01] MEDS: HYDROCODONE/APAP (5/325) TAB PO PRN ×2 (09:23→20:00)
[2017-11-01] MEDS: METOPROLOL 25 MG TAB PO SCH ×2 (09:24→20:00)
[2017-11-01] MEDS: HEPARIN 5,000 UNIT/0.5 ML VIAL SC SCH ×2 (09:27→21:00)
[2017-11-01] MEDS: FAMOTIDINE 20 MG INJ IV SCH ×2 (09:30→21:00)
--- NOTE | 2017-11-01 10:13 | PN ---
Date/Time of Note Date/Time of Note DATE: 11/01/17 TIME: 10:06 Assessment/Plan Lines/Catheters IV Catheter Type (from Nrsg): Peripheral IV Aguirre in Place (from Nrs): No Assessment/Plan Chief Complaint/Hosp Course 1. Very large chronic (20 years) left inguinal hernia: s/p hernia repair 10/25 -elevate when in bed -scrotal support -IS -ice pack -brady drain care -pain management-attempt non narcotics first to reduce chance of decreased gastric motility -abd binder -ambulate -PT eval & treat -may be discharged per medical team with for drain care; to follow in office in 1-2 weeks 2. SBO, possible partial secondary to above; +bowel function; sbft noted without obstruction -diet as tolerated 3. Leukocytosis: afebrile; normalized -cont abx 4. Anemia -Monitor 5. Smoker -Highly encouraged cessation 6. CATRINA vs. CKD with left hydroureteronephrosis 2/2 kinking from #1; cr up +uop -Judicious fluid management -Avoid nephrotoxic agents -per renal 7. Hypertension -Diet and medication optimization encouraged 8. Debility: -PT; encourage ambulation Thank you. Patient seen and examined in collaboration with Dr. Trell Guo. Problems: Subjective 24 Hr Interval Summary Feels well. Improved activity tolerance. tolerating soft diet. +bowel function. No fevers, chills, sob, congested cough, cp, palpitations, doll, dizziness, n/v/d/ dysuria. Exam/Review of Systems Vital Signs Vitals Vital Signs Date Time Temp Pulse Resp B/P Pulse Ox O2 Delivery O2 Flow Rate FiO2 11/01/17 08:00 97.8 78 20 156/106 95 10/30/17 20:00 Nasal Cannula 2.0 Intake and Output 10/31/17 10/31/17 11/01/17 15:00 23:00 07:00 Intake Total 200 ml 2000 ml 850 ml Output Total 890 ml 370 ml Balance 200 ml 1110 ml 480 ml Exam Free Text/Dictation Constitutional: alert, oriented, No distress Psych: nl mood Head: atraumatic, normocephalic Eyes: PERRL, nl conjunctiva, No icteric ENMT: mucosa pink and moist, nl external ears & nose, nl lips & teeth Neck: jvd, non-tender, supple Respiratory: r M/L lung diminished; L lung clear No congested cough, No labored breathing Cardiovascular: edema, No regular rate and rhythm Gastrointestinal: improved distention, soft, tender, left BRADY drain serosanguineous drainage No rebound or guarding Genitourinary - Male: Left inguinal/scrotal skin min edematous, no discoloration, min tender Musculoskeletal: No joint tenderness Extremities: normal pulses, No calf tenderness Neurological: nl speech, nl strength, No 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
--- NOTE | 2017-11-01 12:12 | PDOCDIS ---
Discharge Instructions CONDITION Patient Condition: Stable HOME CARE INSTRUCTIONS: Special Diet: Soft Diet FOLLOW UP/APPOINTMENTS Follow-up Plan Follow-up with Dr. Guo in 1 week. [id number] [facility] [address] [place] [id number] Office .Follow up with primary care physician in 1 week If you don't have one please let someone know, we can give you resources that may help you pick one. You may also call your insurance company to assign one to you. Review your medication list with your nurse before leaving and if you need new prescriptions please let your nurse know. I may have made changes to your home medications or given you new prescriptions, please let your primary doctor know as well. Stay compliant with your medications and report any side effects to your PCP or pharmacist. Return to the ER if you have any concerns and cannot reach your doctors or call your insurance company, they usually have a nurse that can help you. . Call 911 or go to the nearest emergency room if experiencing loss of consciousness, dizziness, chest pain, shortness of breath, vomiting/abdominal pain, speech difficulties, motor weakness or any unusual symptoms. Abdominal drain management by home health nurse. RICHARD HICKMAN NP Nov 01, 2017 12:12
[2017-11-01] MEDS ORDERED: HYDR-3498 PO (12:16)
[2017-11-01] MEDS ORDERED: FAMO20TA18 PO (12:16)
[2017-11-01] MEDS ORDERED: METO-448 PO (12:16)
--- NOTE | 2017-11-01 13:52 | DS ---
Date/Time of Note Date/Time of Note DATE: 11/01/17 TIME: 13:47 Discharge Summary Admission/Discharge Info Admit Date/Time Oct 24, 2017 at 19:31 Discharge Date/Time Discharge Diagnosis 1.Massive left-sided scrotal hernia/inguinal hernia occupying entire sigmoid colon and cecum causing partial small bowel obstruction and left hydroureteronephrosis. status post Repair of incarcerated hernia, difficult operation on 10/25/2017. 2. CATRINA, likely with left hydroureteronephrosis versus CKD. Resolved. 3. Essential hypertension. 4. Leukocytosis, likely reactive. Resolved. 5. Substance abuse/nicotine abuse. Patient Condition: Stable Consults Dr. Guo, surgery. Procedures 10/24/2017. Scrotal ultrasound. IMPRESSION: 1. Massive left-sided scrotal hernia. Correlation with CT scan is advised. Surgical consultation is required. 10/24/2017. CT abdomen and pelvis without contrast. IMPRESSION: 1. Extremely large left inguinal hernia, partially imaged. The hernia contains nearly the entire sigmoid colon and cecum, which are not dilated. There is also a dilated distal small bowel loop within the hernia sac, and dilatation of the more proximal small bowel, consistent with a small bowel obstruction. 2. Mild to moderate left hydroureteronephrosis secondary to kinking of the mid to distal left ureter by the hernia. 3. Small volume of ascites. 4. Mild to moderate atherosclerotic arterial calcifications. 10/25/2017. Renal ultrasound. MPRESSION: Mild to moderate left-sided hydronephrosis, not significantly changed. 10/25/2017. Operation/Procedure Performed 1. Repair of incarcerated descending colon, sigmoid, cecum, and 10 feet of small bowel into a 2-1/2 feet long scrotum 2. Very difficult operation, modifier 22 10/28/2017. Gastrografin small bowel follow-through. IMPRESSION: 1. Mild dilatation of proximal small bowel loops in the left upper quadrant with normal transit of contrast through the small bowels to the colon in less than 2 hours. Findings may be consistent with mild postsurgical ileus versus early or partial small bowel obstruction. Recommend follow-up. 2. Postsurgical changes in the left pelvis from recent hernia repair. Hospital Course This is a 52-year-old male with chronic scrotal/inguinal hernia with hugely swollen scrotum for around 20 years, now presenting to the emergency room with sudden onset of excruciating scrotal pain who is noted with massive incarcerated left sided scrotal hernia/inguinal hernia with small bowel obstruction. Hernia was also causing ureteral obstruction with the left Hydroureteronephrosis and CATRINA. Patient had surgery evaluation. On 10/25/2017, patient had repair of incarcerated hernia which was a difficult operation with expected high risk postoperative complications. He was continued on empiric anaerobic coverage with Cipro and Flagyl. Patient had nephrology evaluation and his renal function was monitored closely and remained stable. For blood pressure, patient was continued on metoprolol. Postoperatively, the patient did well. Leukocytosis resolved. There was no positive cultures. No further antibiotics indicated. Patient also showed signs of return of bowel function. Since patient remained clinically stable, we decided to discharge patient with close outpatient surgery follow-up. Patient had WING in place at time of discharge which will be taken care of by surgery colleagues with his first postoperative appointment in Dr. Guo's clinic in 1 week from now. Since patient was discharged with drain in place, he was given 7 more days on Cipro and Flagyl to complete a full 2 weeks course. Patient also had home health nurse arranged for drain management. Patient was also counseled on cessation of substance abuse which he verbalized. Approximately 60 minute was spent in coordinating the discharge on this patient. Patient was seen in collaboration with [facility] Reported Medications Hydrochlorothiazide* (Hydrochlorothiazide*) Unknown Strength Tablet, 1 TAB PO DAILY, #30 TAB 10/24/17 Labetalol Hcl* (Labetalol Hcl*) Unknown Strength Tablet, 1 TAB PO BID, TAB 10/24/17 Follow-up Plan Follow-up with Dr. Guo in 1 week. [address] [facility] [address] [place] [id number] Office .Follow up with primary care physician in 1 week If you don't have one please let someone know, we can give you resources that may help you pick one. You may also call your insurance company to assign one to you. Review your medication list with your nurse before leaving and if you need new prescriptions please let your nurse know. I may have made changes to your home medications or given you new prescriptions, please let your primary doctor know as well. Stay compliant with your medications and report any side effects to your PCP or pharmacist. Return to the ER if you have any concerns and cannot reach your doctors or call your insurance company, they usually have a nurse that can help you. . Call 911 or go to the nearest emergency room if experiencing loss of consciousness, dizziness, chest pain, shortness of breath, vomiting/abdominal pain, speech difficulties, motor weakness or any unusual symptoms. Abdominal drain management by home health nurse. Primary Care Provider Not On Staff Doctor Pending Labs Laboratory Tests Test 11/01/17 05:29 White Blood Count 9.910^3/ul (4.8-10.8) Red Blood Count 3.5210^6/ul (4.70-6.10) Hemoglobin 11.1g/dl (14.0-18.0) Hematocrit 32.5% (42.0-52.0) Mean Corpuscular Volume 92.3fl (82.0-101.0) Mean Corpuscular Hemoglobin 31.5pg (29.0-33.0) Mean Corpuscular Hemoglobin Concent 34.2g/dl (32.0-37.0) Red Cell Distribution Width 12.7% (11.5-14.5) Platelet Count 58212^3/UL (140-415) Mean Platelet Volume 10.2fl (7.4-10.4) Neutrophils % 67.2% (39.0-77.0) Lymphocytes % 13.7% (15.0-51.0) Monocytes % 10.0% (0.0-11.0) Eosinophils % 8.1% (0.0-7.0) Basophils % 0.4% (0.0-2.0) Nucleated Red Blood Cells % 0.0/100WBC (0.0-0.0) Neutrophils # 6.710^3/ul (1.6-7.5) Lymphocytes # 1.410^3/ul (0.8-2.9) Monocytes # 1.010^3/ul (0.3-0.9) Eosinophils # 0.810^3/ul (0.0-0.5) Basophils # 0.010^3/ul (0.0-0.1) Nucleated Red Blood Cells # 0.010^3/ul (0.0-0.0) Sodium Level 138mmol/L (135-144) Potassium Level 3.5mmol/L (3.5-5.1) Chloride Level 105mmol/L (97-110) Carbon Dioxide Level 27mmol/L (21-31) Anion Gap 10 (8-16) Blood Urea Nitrogen 8mg/dl (7-20) Creatinine 1.00mg/dl (0.61-1.24) Glucose Level 105mg/dl (70-220) Calcium Level 9.0mg/dl (8.4-10.2) RICHARD HICKMAN V. DIESEL ENGINE INSPECTOR Nov 01, 2017 13:52
[2017-11-01] MEDS ORDERED: METR500T14 PO (13:54)
[2017-11-01] MEDS ORDERED: CIPR500T4 PO (13:54)
[2017-11-01 16:42] VITALS: BP 152/94; RESP 21
[2017-11-01 20:00] VITALS: BP 151/105; RESP 20
== END 2017-11-02 | disposition home health service (06) | DRG 351 ==
LOC: E/R 15:57 → MS2 19:31
PROVIDERS: ADMIT Internal Medicine; ATTEND Internal Medicine
PROC: 0YU60JZ Supplement Left Inguinal Region with Synthetic Substitute, Open Approach (ICD-10-PCS; principal; 2017-10-25 18:00)
DX: K40.30 Unilateral inguinal hernia, with obstruction, without gangrene, not specified as recurrent (principal); N17.9 Acute kidney failure, unspecified; N13.30 Unspecified hydronephrosis; E83.42 Hypomagnesemia; E83.52 Hypercalcemia; D72.829 Elevated white blood cell count, unspecified; Z72.0 Tobacco use; D64.9 Anemia, unspecified; Z59.0 Homelessness; F12.10 Cannabis abuse, uncomplicated; I12.9 Hypertensive chronic kidney disease with stage 1 through stage 4 chronic kidney disease, or unspecified chronic kidney disease; N18.9 Chronic kidney disease, unspecified
CPT/HCPCS: 36415; 71010; 74176; 74250; 76775; 76870; 80048; 80053; 80061; 81003; 83036; 83605; 83690; 83735; 84155; 84300; 84443; 85025; 85610; 85730; 87040; 87086; 88302; 93306; 96374; 96375; 96376; 97110; 97116; 97163; 97530; C1781; J0360; J0690; J0744; J1170; J1644; J1956; J2175; J2270; J2405; J2710; J3475; J7030; J7040; J7042

== ENCOUNTER 2017-11-15 13:14 | Inpatient (IN) | END 2017-11-23 18:01 | disposition home health service (06) | DRG 862 ==